=== PATIENT | female | born 2000 | race Two or more races ===

== ENCOUNTER 2022-02-15 01:00 | Observation (INO) | payer MEDICAID, SELFPAY ==
--- NOTE | ~2022-02-15 | CT_ITS ---
EXAMINATION: CT ABDOMEN AND PELVIS WITHOUT CONTRAST CLINICAL INFORMATION: Right lower quadrant pain COMPARISON: None TECHNIQUE: Multidetector volumetric imaging was performed from the superior aspect of the liver through the pubic symphysis. Sagittal and coronal reformatted images were obtained on the technologist's workstation. This CT examination was performed using dose optimization techniques as appropriate, variously including the following: *Automated exposure control *Adjustment of mA and/or kV according to patient size (this includes techniques or standardized protocols for targeted exams where dose is matched to indication/reason for exam; i.e. extremities or head) *Use of iterative reconstruction technique DLP: 518 mGy-cm FINDINGS: LUNG BASES: The visualized lung bases are unremarkable. LIVER, GALLBLADDER, AND BILIARY TREE: The liver is normal in size, shape, and attenuation. No focal hepatic lesion or biliary ductal dilatation is present. The gallbladder is unremarkable with no evidence of radiopaque gallstones, gallbladder wall thickening, or obvious pericholecystic inflammatory changes. PANCREAS: Unremarkable. SPLEEN: Unremarkable. ADRENAL GLANDS: Unremarkable. KIDNEYS AND URETERS: The kidneys are normal in size, shape, and attenuation. No hydronephrosis or hydroureter. There are at least 3 punctate right-sided calculi. No definite left-sided calculi. BLADDER: Unremarkable. GASTROINTESTINAL TRACT: The stomach is unremarkable. Normal caliber small bowel. No obstruction. Partially visualized normal appendix. No colonic wall thickening or change. No free air or free fluid. ABDOMINAL WALL: No significant hernia is appreciated. LYMPH NODES: Normal. VASCULAR: Unremarkable. PELVIC VISCERA: The uterus and adnexa are unremarkable. OSSEOUS STRUCTURES: No acute or suspicious osseous abnormality. CT/CT abdomen pelvis wo con IMPRESSION: No acute findings in the abdomen or pelvis. No inflammatory change. Partial visualization of a normal appendix. Tiny right-sided renal calculi. No hydronephrosis. Fleischner guidelines were followed.
[2022-02-15 01:37] VITALS: BP 130/83; PULSE 113; RESP 20; TEMP 36.8; O2SAT 97; BMI 22.6
[2022-02-15] MEDS: Ondansetron ODT 4 MG TAB.RAPDIS TRANSLINGU (01:47)
[2022-02-15 01:50] LABS: Basophils Absolute Auto 0.1 X10*3/uL (0.0-0.2); Basophils Percent Auto 0.2 % (0-2); Eosinophils Absolute Auto 0.1 X10*3/uL (0.0-0.4); Eosinophils Percent Auto 0.3 % (0-4); Hematocrit 34.9 % (37.0-47.0); Hemoglobin 11.4 g/dl (12.0-16.0); Imm Gran Abs Auto 0.12 X10*3/uL (0.00-0.03); Imm Gran Pct Auto 0.5 % (0.0-0.4); Lymphocytes Absolute Auto 1.1 X10*3/uL (1.2-4.9); MANUAL DIFF FLAG SCAN; Mean Corpuscular HGB Conc 32.7 g/dl (31.0-35.0); Mean Corpuscular Hemoglobin 24.4 pg (27.0-33.0); Mean Corpuscular Volume 74.6 fL (80.0-98.0); Mean Platelet Volume 10.9 fL (9.4-12.3); Monocytes Absolute Auto 1.2 X10*3/uL (0.1-1.2); Monocytes Percent Auto 5.1 % (2-11); Neutrophils Absolute Auto 20.1 x10*3/uL (2.0-8.3); Neutrophils Percent Auto 88.9 % (45-73); Platelet Count 371 X10*3/uL (160-400); Red Blood Count 4.68 X10*6/uL (4.20-5.50); Red Cell Distribution Width 14.1 % (11.0-16.0); SCAN SMEAR FLAG 1; White Blood Count 22.6 X10*3/uL (4.8-10.8)
[2022-02-15 02:11] LABS: Alanine Aminotransferase 19 U/L (0-31); Albumin Level 4.7 g/dL (3.5-5.0); Alkaline Phosphatase 53 U/L (39-117); Anion Gap 16 (12-20); Aspartate Amino Transferase 22 U/L (5-31); Bilirubin Total 0.8 mg/dL (0.0-1.0); Blood Urea Nitrogen 12 mg/dL (9-16); Calcium 9.8 mg/dL (8.4-10.2); Carbon Dioxide 23 mmol/L (22-29); Chloride 108 mmol/L (96-108); Creatinine Clr Calc Pharmacy 66.6; Estimated Glomerular Filt Rate > 60; Glucose Random 117 mg/dL (60-115); Potassium 4.3 mmol/L (3.3-5.1); Sodium 143 mmol/L (135-145); Total Protein 7.2 g/dL (6.5-8.0)
[2022-02-15 02:27] LABS: SLIDE REVIEW VERIFIED
--- NOTE | 2022-02-15 02:43 | ED.ABDPAIN ---
HPI - Abdominal Pain General Chief Complaint: Abdominal Pain Stated Complaint: abd pain Time Seen by Provider: 02/15/22 02:36 Source: patient Mode of arrival: ambulatory Limitations: no limitations History of Present Illness HPI narrative: Patient comes to the emergency room complaining of right lower quadrant pain. Patient states that she has been having severe abdominal pain for 1 year. Patient states that she is usually seen at [facility]. She was seen there a few days ago, patient signed herself out against medical advice for unclear reason. Patient uses marijuana to relieve the pain. Patient states that usually when she is about to get her menstrual period, She has significant pain. However, this time she is not menstruating. Patient states that the pain that she is feeling at this time, it has been present for 2 weeks Related Data Allergies Allergy/AdvReac Type Severity Reaction Status Date / Time cat dander [cats] Allergy Hives Verified 02/15/22 01:36 dog dander [dogs] Allergy Hives Verified 02/15/22 01:36 Seasonal Allergies Allergy Hives Verified 02/15/22 01:36 Review of Systems Review of Systems Constitutional : No Weight loss, No Fever, No Chills, No Night Sweats, No Fatigue, No Malaise ENT/Mouth : No Hearing loss, No Ear Pain, No Nasal Congestion, No Sinus Pain, No Hoarseness, No sore throat, No Rhinorrhea, No Swallowing Difficulty Eyes: No Eye Pain, No Swelling, No Redness, No Foreign Body, No Discharge, No Vision Changes Cardiovascular : No Chest Pain, No SOB, No Dyspnea on Exertion, No Orthopnea, No Edema, No Palpitations Respiratory : No Cough, No Sputum, No Wheezing, No Smoke Exposure, No Dyspnea Gastrointestinal : Complaining of nausea, no diarrhea, complaining of right lower quadrant pain for 2 weeks Genitourinary : no irregular bleeding, No Dysuria, No Urinary Frequency, No Hematuria, No Urinary Incontinence, No Urgency, No Flank Pain, No Urinary Flow Changes, No Hesitancy Musculoskeletal : No joint pain, No Myalgias, No Joint Swelling Skin : No Skin Lesions, No rash Neuro : No Weakness, No Numbness, No Paresthesias, No Loss of Consciousness, No Dizziness, No Headache Psych : No Anxiety/Panic, No Depression, No SI/HI/AH/VH, No Social Issues, Heme/Lymph: No Bruising, No Bleeding,No Lymphadenopathy Endocrine : No Polyuria, No Polydipsia, No Temperature Intolerance FOR[facility]LY [facility], [facility] Past Medical History Medical History (Updated 02/15/22 @ 04:02 by Tanya Cardozo MD) Asthma Cannabinoid hyperemesis syndrome Cyclical vomiting Social History Social History Advance Directives: No Physical Exam ED Vital Signs: Vital Signs - 24 hr 02/15/22 01:37 02/15/22 04:00 02/15/22 05:51 Temperature 98.3 F Pulse Rate 113 H 91 100 Respiratory Rate 20 16 20 Blood Pressure 130/83 122/75 112/76 Pulse Oximetry 97 98 Oxygen Delivery Method Room Air Room Air BMI result Body Mass Index 22.6 Const Other: Appearance: Alert. Oriented X3. Very anxious, crying hysterically, twisting and turning in bed, looks uncomfortable Eyes: Pupils equal, round and reactive to light. ENT: Pharynx normal. Neck: Normal inspection. Neck supple. No lymph nodes noted. No crepitus CVS: Normal heart rate and rhythm. Pulses normal. Normal S1 and S2 Respiratory: No respiratory distress. Breath sounds normal. No Wheezing. No rales Abdomen: Soft, nondistended, exaggerated response to very mild touch over the right lower quadrant. Skin: Pale, mildly diaphoretic Extremities: No lower extremity edema. No Lacerations. No Rash Neuro: Oriented X 3. No motor deficit. No sensory deficit. Moving all extremities. No slurred speech. CN 2 through 12 grossly intact Psych: calm, cooperative, normal affect Course Course Course Narrative: I reviewed records from [facility]. Patient was seen there on 02/06/2022, patient had the same presentation, crying, screaming, patient was given IV fluids and 2.5 mg of Haldol, eventually patient walked out of the ED at [facility] CT scan is negative for any acute pathology, white blood cell count is elevated likely secondary to reactive leukocytosis. Lactic acid pending. Patient will p.o. challenge. If patient does well, she will be discharged. If not, patient will be admitted for intractable vomiting Patient's lactic acid 2.7, likely secondary from vomiting. Patient receiving IV fluids. Patient is at this time calm, sleeping comfortably, not vomiting. 04:45, patient started vomiting again, patient given Phenergan, IM Haldol and IV Ativan. Plan to p.o. challenge after the medication takes effect Patient continues vomiting. Patient was given Compazine. I discussed the patient with Dr. Acevedo, patient being admitted for intractable vomiting, likely secondary to marijuana abuse MDM - Abdominal Pain Lab Data Result diagrams: 02/15/22 01:44 02/15/22 01:44 Labs: Lab Results 02/15/22 02/15/22 02/15/22 Range/Units 01:44 01:44 03:19 WBC 22.6 H (4.8-10.8) X10*3/uL RBC 4.68 (4.20-5.50) X10*6/uL Hgb 11.4 L (12.0-16.0) g/dl Hct 34.9 L (37.0-47.0) % MCV 74.6 L (80.0-98.0) fL MCH 24.4 L (27.0-33.0) pg MCHC 32.7 (31.0-35.0) g/dl RDW 14.1 (11.0-16.0) % Plt Count 371 (160-400) X10*3/uL MPV 10.9 (9.4-12.3) fL Immature Gran % (Auto) 0.5 H (0.0-0.4) % Neut % (Auto) 88.9 H (45-73) % Lymph % (Auto) 5.0 L (20-40) % [place] % (Auto) 5.1 (2-11) % Eos % (Auto) 0.3 (0-4) % Baso % (Auto) 0.2 (0-2) % Lymph # (Auto) 1.1 L (1.2-4.9) X10*3/uL [place] # (Auto) 1.2 (0.1-1.2) X10*3/uL Eos # (Auto) 0.1 (0.0-0.4) X10*3/uL Baso # (Auto) 0.1 (0.0-0.2) X10*3/uL Abs Immat Gran (auto) 0.12 H (0.00-0.03) X10*3/uL Absolute Neuts (auto) 20.1 H (2.0-8.3) x10*3/uL Absolute Nucleated RBC 0.000 (0.0-0.012) X10*3/uL Nucleated RBC % (auto) 0.0 (0.0-0.2) /100WBC Smear Tech's Comments VERIFIED Sodium 143 (135-145) mmol/L Potassium 4.3 (3.3-5.1) mmol/L Chloride 108 (96-108) mmol/L Carbon Dioxide 23 (22-29) mmol/L Anion Gap 16 (12-20) BUN 12 (9-16) mg/dL Creatinine 0.99 (0.5-1.4) mg/dL Estim Creat Clear Calc 66.6 Estimated GFR > 60 Random Glucose 117 H (60-115) mg/dL Lactic Acid 2.7 H* (0.5-2.0) mmol/L Calcium 9.8 (8.4-10.2) mg/dL Total Bilirubin 0.8 (0.0-1.0) mg/dL AST 22 (5-31) U/L ALT 19 (0-31) U/L Alkaline Phosphatase 53 (39-117) U/L Total Protein 7.2 (6.5-8.0) g/dL Albumin 4.7 (3.5-5.0) g/dL Beta HCG, Quant < 2 mIU/mL Ethyl Alcohol < 10 mg/dL Imaging Data CT scan - abdomen: Radiologist's impression: FINDINGS: LUNG BASES: The visualized lung bases are unremarkable.? LIVER, GALLBLADDER, AND BILIARY TREE: The liver is normal in size, shape, and attenuation. No focal hepatic lesion or biliary ductal dilatation is present. The gallbladder is unremarkable with no evidence of radiopaque gallstones, gallbladder wall thickening, or obvious pericholecystic inflammatory changes.? PANCREAS: Unremarkable.? SPLEEN: Unremarkable.? ADRENAL GLANDS: Unremarkable.? KIDNEYS AND URETERS: The kidneys are normal in size, shape, and attenuation. No hydronephrosis or hydroureter. There are at least 3 punctate right-sided calculi. No definite left-sided calculi. BLADDER: Unremarkable.? GASTROINTESTINAL TRACT: The stomach is unremarkable. Normal caliber small bowel. No obstruction. Partially visualized normal appendix. No colonic wall thickening or change. No free air or free fluid.? ABDOMINAL WALL: No significant hernia is appreciated.? LYMPH NODES: Normal. VASCULAR: Unremarkable. PELVIC VISCERA: The uterus and adnexa are unremarkable.? OSSEOUS STRUCTURES: No acute or suspicious osseous abnormality.? CT/CT abdomen pelvis wo con IMPRESSION: No acute findings in the abdomen or pelvis. No inflammatory change. Partial visualization of a normal appendix. ? Tiny right-sided renal calculi. No hydronephrosis.? ? Fleischner guidelines were followed. Discharge Plan Discharge Clinical Impression: Cyclical vomiting Patient Disposition: Admitted As Inpatient
[2022-02-15 03:03] LABS: HCG Quantitative < 2 mIU/mL
[2022-02-15] MEDS: Ketorolac Tromethamine 30 MG/ML VIAL IVPUSH (03:16)
[2022-02-15] MEDS: 0.9 % Sodium Chloride 1,000 ML 999 ML IVCONT ×2 (03:18→05:01)
--- NOTE | 2022-02-15 03:25 | PC.NURSE ---
Pt presented in immense pain, writing and screaming. Pt is having trouble following directions due to the pain. Pt also got nausea from the pain, denied sublingual zofran, stating it made it all worse when she tookit before. IV inserted, torodol given per MAR, fluids running.
[2022-02-15] MEDS: ondansetron HCL 4 MG/2 ML VIAL IVPUSH (03:35)
[2022-02-15 04:00] VITALS: BP 122/75; PULSE 91; RESP 16
[2022-02-15 04:04] LABS: Ethanol < 10 mg/dL
[2022-02-15 04:13] LABS: Lactic Acid 2.7 mmol/L (0.5-2.0)
[2022-02-15] MEDS: LORazepam 2 MG/ML VIAL 1 MG IVPUSH (04:54)
[2022-02-15] MEDS: Haloperidol Lactate 5 MG/ML VIAL 2.5 MG IM (04:55)
--- NOTE | 2022-02-15 05:02 | PC.NURSE ---
Pt given haldol, ativan, and promethazine for pain management.
[2022-02-15 05:23] LABS: Reflex Lactate? Lactic Acid Added
[2022-02-15 05:51] VITALS: BP 112/76; PULSE 100; RESP 20; O2SAT 98
--- NOTE | 2022-02-15 06:11 | PC.NURSE ---
pt is still vomiting, pt is unable to tolerate po challenge. plan is to admit. pt made aware.
--- NOTE | 2022-02-15 06:45 | PC.NURSE ---
Pt came in with abdominal pain and vomiting. Pt was writhing in pain uncontrollably. Pt has a history of this type of reaction after smoking marijuana, she has been seen for this several times but refuses to stop. Pt was given torodol, zofran, haldol, and ativan to attempt to control the pain and nausea. Attempted a PO trial, but pt vomited water back up. At this time, pt is asleep. The plan is for her to be admitted.
[2022-02-15 07:07] VITALS: BP 119/70; PULSE 99; RESP 16; TEMP 36.4; O2SAT 100
[2022-02-15 07:29] LABS: Appearance Urine HAZY; Color Urine YELLOW; Glucose Urine UA NEG (NEG); Leukocyte Esterase Urine NEG (NEG); Nitrite Urine NEG (NEG); PH 7.5 (5.0-8.0); Urine Blood NEG (NEG); Urine Ketones >=80 MG/DL (NEG); Urine Protein TRACE MG/DL (NEG-TRACE)
[2022-02-15 07:47] LABS: Amphetamine Screen Urine Not Detected (Not Detect); Barbiturates, Urine Not Detected (Not Detect); Benzodiazepines Screen Urine Not Detected (Not Detect); Cannabinoid Screen Urine POSITIVE (Not Detect); Cocaine Screen Urine Not Detected (Not Detect); Fentanyl, urine Not Detected (Not Detect); Opiate Screen Urine Not Detected (Not Detect); Phencyclidine Screen Urine Not Detected (Not Detect)
[2022-02-15] MEDS: Prochlorperazine Edisylate 10 MG/2 ML VIAL IVPUSH (08:36)
--- NOTE | 2022-02-15 09:17 | PHA.MEDREC ---
Pharmacy Consult ? Medication Reconciliation Pharmacy has completed the medication reconciliation. spoke with patient in the ED.
--- NOTE | 2022-02-15 09:23 | P.HPHOSP_ITS ---
History of Present Illness Date of Service: 02/15/22 Chief Complaint: nuasea and vomiting This is a 21 year old female with a PMH of cylical vomiting syndrome who [place] [facility] with a 1 day history of intractable nausea and vomiting, followed by buring epigastric pain of 1 day duration. The patient reports that she typically has nausea every morning and usually by the afternoon, her symptoms improve and she is able to tolerate a diet. However, on the day [employer] the patients symptoms worsened to the point that she was unable to tolerate even water and hence she arrived to the ED. Since arrival to the ED, she patient has been 6 rounds of anti-emetics, but despite this she has had multiple bouts of emesis. She has failed her PO trial and now will be admitted for further treatment. In regards to her history of CVS, she reports she has seen a GI in the past. She has been told of marijuana's association with the condition. She reports intermittently marijuana use, typically when she pain. She reports no association with marijuana use and subsequent flare of her CVS. Review of Systems Review of Systems: negative except HPI [facility] Medical History Asthma Cannabinoid hyperemesis syndrome Cyclical vomiting Pertinent family history: Denies any known PMH Surgical History (Updated 02/15/22 @ 09:28 by Richard Pierre MD) No pertinent past surgical history Social History (Updated 02/15/22 @ 09:28 by Richadr Pierre MD) Alcohol intake: never Patient Tobacco Use Status: Never used Tobacco Substance Use Type: Marijuana Advance Directives: No Meds Allergies Allergy/AdvReac Type Severity Reaction Status Date / Time cat dander [cats] Allergy Hives Verified 02/15/22 01:36 dog dander [dogs] Allergy Hives Verified 02/15/22 01:36 Seasonal Allergies Allergy Hives Verified 02/15/22 01:36 Active Medications: Current Medications Acetaminophen (Acetaminophen 325 Mg Tablet) 650 mg PO Q6H PRN PRN Reason: Pain, Mild (Pain Scale 1-3) Amitriptyline HCl (Amitriptyline Hcl 10 Mg Tablet) 20 mg PO BEDTIME TRACY Famotidine (Famotidine/Pf 20 Mg/2 Ml Vial) 20 mg IVPUSH BID TRACY Hydroxyzine HCl (Hydroxyzine Hcl 10 Mg Tablet) 10 mg PO Q8H PRN PRN Reason: anxiety Dextrose/Sodium Chloride (D51/2ns) 1,000 mls @ 100 mls/hr IVCONT .Q10H [facility] Morphine Sulfate (Morphine Sulfate 4 Mg/Ml Cartridge) 2 mg IVPUSH Q4H PRN; Protocol PRN Reason: Pain, Severe (Pain Scale 7-10) Ondansetron HCl (Ondansetron Hcl 4 Mg/2 Ml Vial) 4 mg IVPUSH Q8H PRN PRN Reason: Nausea and Vomiting Sodium Chloride (0.9 % Sodium Chloride Flush 3 Ml Syringe) 3 ml IVFLUSH QSHIFT [facility] Home Medications Medication Instructions Recorded Confirmed Last Taken Type albuterol sulfate 90 mcg/actuation 2 puff inhalation Q6H PRN wheezing 02/15/22 02/15/22 Unknown History aerosol inhaler (ProAir HFA) amitriptyline 10 mg tablet 2 tab PO BEDTIME 02/15/22 02/15/22 Unknown History baclofen 5 mg tablet 1 tab PO TID PRN abdominal pain 02/15/22 02/15/22 Unknown History ferrous sulfate 325 mg (65 mg 1 tab PO DAILY 02/15/22 02/15/22 Unknown History iron) tablet (FeroSul) hydroxyzine HCl 10 mg tablet 1 tab PO Q8H PRN anxiety 02/15/22 02/15/22 Unknown History omeprazole 20 mg capsule,delayed 1 cap PO BID@0630,1630 02/15/22 02/15/22 Unknown History release Physical Exam Vital Signs and Narrative: Vital Signs: Last Vital Signs Temp 97.5 F 02/15/22 07:07 Pulse 99 02/15/22 07:07 Resp 16 02/15/22 07:07 BP 119/70 02/15/22 07:07 Pulse Ox 100 02/15/22 07:07 O2 Del Method 02/15/22 07:07 BMI result Body Mass Index 22.6 Const: Other: Constitutional - Awake and Alert, appears uncomfortable Eyes - PERRLA, EOMI Cardiovascular - S1S2, RRR, No edema Respiratory - Normal lung expansion, Normal respiratory effort, No respiratory distress, CTA bilaterally Gastrointestinal - epigastric TTP; no rebound/guarding - No CVA tenderness Extremities - no calf tenderness bilaterally, no swelling Musculoskeletal - Normal inspection, normal ROM Skin - Warm/Dry Neurological - Alert & oriented x3, No focal deficit Psychological - Appropriate affect Results Labs CBC and Chem 7: 02/15/22 01:44 02/15/22 01:44 Labs: Laboratory Results - last 24 hr 02/15/22 02/15/22 02/15/22 01:44 01:44 03:19 MCV 74.6 L MCH 24.4 L MCHC 32.7 RDW 14.1 Plt Count 371 MPV 10.9 Immature Gran % (Auto) 0.5 H Neut % (Auto) 88.9 H Lymph % (Auto) 5.0 L [place] % (Auto) 5.1 Eos % (Auto) 0.3 Baso % (Auto) 0.2 Lymph # (Auto) 1.1 L [place] # (Auto) 1.2 Eos # (Auto) 0.1 Baso # (Auto) 0.1 Abs Immat Gran (auto) 0.12 H Absolute Neuts (auto) 20.1 H Absolute Nucleated RBC 0.000 Nucleated RBC % (auto) 0.0 Smear Tech's Comments VERIFIED Anion Gap 16 Estim Creat Clear Calc 66.6 Estimated GFR > 60 Random Glucose 117 H Lactic Acid 2.7 H* Lactic Acid F/U @ 2Hr Calcium 9.8 Total Bilirubin 0.8 AST 22 ALT 19 Alkaline Phosphatase 53 Total Protein 7.2 Albumin 4.7 Beta HCG, Quant < 2 Urine Color Urine Appearance Urine pH Ur Specific [place] Urine Protein Urine Glucose (UA) Urine Ketones Urine Blood Urine Nitrite Ur Leukocyte Esterase Urine Opiates Screen Urine Fentanyl Screen Ur Barbiturates Screen Ur Phencyclidine Scrn Ur Amphetamines Screen U Benzodiazepines Scrn Urine Cocaine Screen U Marijuana (THC) Screen Ethyl Alcohol < 10 02/15/22 02/15/22 02/15/22 07:18 07:22 07:23 MCV MCH MCHC RDW Plt Count MPV Immature Gran % (Auto) Neut % (Auto) Lymph % (Auto) [place] % (Auto) Eos % (Auto) Baso % (Auto) Lymph # (Auto) [place] # (Auto) Eos # (Auto) Baso # (Auto) Abs Immat Gran (auto) Absolute Neuts (auto) Absolute Nucleated RBC Nucleated RBC % (auto) Smear Tech's Comments Anion Gap Estim Creat Clear Calc Estimated GFR Random Glucose Lactic Acid Lactic Acid F/U @ 2Hr 1.0 Calcium Total Bilirubin AST ALT Alkaline Phosphatase Total Protein Albumin Beta HCG, Quant Urine Color YELLOW Urine Appearance HAZY Urine pH 7.5 Ur Specific [place] 1.020 Urine Protein TRACE Urine Glucose (UA) NEG Urine Ketones >=80 Urine Blood NEG Urine Nitrite NEG Ur Leukocyte Esterase NEG Urine Opiates Screen Not Detected Urine Fentanyl Screen Not Detected Ur Barbiturates Screen Not Detected Ur Phencyclidine Scrn Not Detected Ur Amphetamines Screen Not Detected U Benzodiazepines Scrn Not Detected Urine Cocaine Screen Not Detected U Marijuana (THC) Screen POSITIVE H Ethyl Alcohol Imaging Radiologist's Impressions: Impressions Abdomen/Pelvis CT 02/15/22 03:45 IMPRESSION: No acute findings in the abdomen or pelvis. No inflammatory change. Partial visualization of a normal appendix. Tiny right-sided renal calculi. No hydronephrosis. Fleischner guidelines were followed. Assessment and Plan (1) Cyclical vomiting: Status: Acute Plan This is a 21 yo F with a PMH of known cyclical vomiting syndrome who is presents with a 1 day history of persistent nausea/vomiting and subsequent epigastric pain. She has received multiple rounds of IV anti-emetics and failed her PO challenge, hence will be admitted for further management. 1. Intractable nausea and vomiting Likely secondary to cyclical vomiting syndrome, possibly exacerbated by on going marijuana use IVF IV antiemetics clear liquids if she can tolerate IV pepcid CT negative If no improvement in 24-48 hours, consider GI consult 2. Lactic acidosis not due to severe sepsis resolved with IVF alone 3. Leukocytosis likely recative no foci of infection, monitor for now Continue baseline meds as appropriate. Full Code DVT pptx, Low risk -- early ambulation. Quality Stroke Does the patient have a stroke diagnosis?: No VTE Prior VTE?: No VTE Risk Level:: Medical - low VTE Device Contraindication: Treatment Not Indicated VTE Drug Contraindication: Treatment Not Indicated
[2022-02-15 09:42] VITALS: BP 116/80; PULSE 86; RESP 17; O2SAT 99
[2022-02-15] MEDS: Dextrose 5 % and 0.45 % NaCl 1,000 ML 100 ML IVCONT (09:53)
[2022-02-15] MEDS: Famotidine/PF 20 MG/2 ML VIAL IVPUSH (09:54)
[2022-02-15 10:13] LABS: COVID-19 Test Negative (Negative); IDNOW Serial# 55D5AD1C
[2022-02-15] MEDS: Morphine Sulfate 4 MG/ML CARTRIDGE 2 MG IVPUSH (13:44)
[2022-02-15 14:37] VITALS: BP 124/66; PULSE 102; RESP 19; TEMP 37; O2SAT 99
--- NOTE | 2022-02-15 17:17 | PM.EVENT ---
Event Note Date of Service: 02/15/22 Event Note: Informed by RN that the patient wanted to leave against medical advice. Patient was informed of the risks of leaving AMA including worsening of her presenting symptoms and possible . She is aaox3 and competent to make this decision.
--- NOTE | 2022-02-15 17:19 | PM.DS ---
DS: Providers Provider Date of Service: 02/15/22 Date of admission: 02/15/22 09:17 Primary care physician: Unknown Physician DS: Diagnosis Discharge Diagnosis (1) Cyclical vomiting: Status: Acute (2) Lactic acidosis: Status: Acute (3) Leukocytosis: Status: Acute DS: Summary Hospital Course Hospital Course: Patient was admitted for intractable nausea and vomiting secondary to cyclical vomiting syndrome. She was traeted with IV antiemetics, IVF, IV pain meds. Hours after admission, patient decided to leave AMA. Time Spent with Patient Time attestation: Total time spent providing and/or coordinating discharge services: Discharge coordination time: Less than 30 minutes Quality: Safe Use of Opioids Does Pt have an Active Cancer Diagnosis on the Problem List?: No Quality: Stroke Does the patient have a stroke diagnosis?: No Physical Exam Vital Signs: Vital Signs: Last Vital Signs Temp 98.6 F 02/15/22 14:37 Pulse 102 H 02/15/22 14:37 Resp 19 02/15/22 14:37 BP 124/66 02/15/22 14:37 Pulse Ox 99 02/15/22 14:37 O2 Del Method 02/15/22 14:37 BMI result Body Mass Index 22.6 Const: Other: aaox3 DS: Data Data Completed and Pending Labs on day of discharge: Laboratory Results - last 24 hr 02/15/22 02/15/22 02/15/22 01:44 01:44 03:19 WBC 22.6 H RBC 4.68 Hgb 11.4 L Hct 34.9 L MCV 74.6 L MCH 24.4 L MCHC 32.7 RDW 14.1 Plt Count 371 MPV 10.9 Immature Gran % (Auto) 0.5 H Neut % (Auto) 88.9 H Lymph % (Auto) 5.0 L [place] % (Auto) 5.1 Eos % (Auto) 0.3 Baso % (Auto) 0.2 Lymph # (Auto) 1.1 L [place] # (Auto) 1.2 Eos # (Auto) 0.1 Baso # (Auto) 0.1 Abs Immat Gran (auto) 0.12 H Absolute Neuts (auto) 20.1 H Absolute Nucleated RBC 0.000 Nucleated RBC % (auto) 0.0 Smear Tech's Comments VERIFIED Sodium 143 Potassium 4.3 Chloride 108 Carbon Dioxide 23 Anion Gap 16 BUN 12 Creatinine 0.99 Estim Creat Clear Calc 66.6 Estimated GFR > 60 Random Glucose 117 H Lactic Acid 2.7 H* Lactic Acid F/U @ 2Hr Calcium 9.8 Total Bilirubin 0.8 AST 22 ALT 19 Alkaline Phosphatase 53 Total Protein 7.2 Albumin 4.7 Beta HCG, Quant < 2 Urine Color Urine Appearance Urine pH Ur Specific [place] Urine Protein Urine Glucose (UA) Urine Ketones Urine Blood Urine Nitrite Ur Leukocyte Esterase Urine Opiates Screen Urine Fentanyl Screen Ur Barbiturates Screen Ur Phencyclidine Scrn Ur Amphetamines Screen U Benzodiazepines Scrn Urine Cocaine Screen U Marijuana (THC) Screen Ethyl Alcohol < 10 COVID-19 (SHAY) COVID-19 [employer] 02/15/22 02/15/22 02/15/22 07:18 07:22 07:23 WBC RBC Hgb Hct MCV MCH MCHC RDW Plt Count MPV Immature Gran % (Auto) Neut % (Auto) Lymph % (Auto) [place] % (Auto) Eos % (Auto) Baso % (Auto) Lymph # (Auto) [place] # (Auto) Eos # (Auto) Baso # (Auto) Abs Immat Gran (auto) Absolute Neuts (auto) Absolute Nucleated RBC Nucleated RBC % (auto) Smear Tech's Comments Sodium Potassium Chloride Carbon Dioxide Anion Gap BUN Creatinine Estim Creat Clear Calc Estimated GFR Random Glucose Lactic Acid Lactic Acid F/U @ 2Hr 1.0 Calcium Total Bilirubin AST ALT Alkaline Phosphatase Total Protein Albumin Beta HCG, Quant Urine Color YELLOW Urine Appearance HAZY Urine pH 7.5 Ur Specific [place] 1.020 Urine Protein TRACE Urine Glucose (UA) NEG Urine Ketones >=80 Urine Blood NEG Urine Nitrite NEG Ur Leukocyte Esterase NEG Urine Opiates Screen Not Detected Urine Fentanyl Screen Not Detected Ur Barbiturates Screen Not Detected Ur Phencyclidine Scrn Not Detected Ur Amphetamines Screen Not Detected U Benzodiazepines Scrn Not Detected Urine Cocaine Screen Not Detected U Marijuana (THC) Screen POSITIVE H Ethyl Alcohol COVID-19 (SHAY) [employer] 02/15/22 09:41 WBC RBC Hgb Hct MCV MCH MCHC RDW Plt Count MPV Immature Gran % (Auto) Neut % (Auto) Lymph % (Auto) [place] % (Auto) Eos % (Auto) Baso % (Auto) Lymph # (Auto) [place] # (Auto) Eos # (Auto) Baso # (Auto) Abs Immat Gran (auto) Absolute Neuts (auto) Absolute Nucleated RBC Nucleated RBC % (auto) Smear Tech's Comments Sodium Potassium Chloride Carbon Dioxide Anion Gap BUN Creatinine Estim Creat Clear Calc Estimated GFR Random Glucose Lactic Acid Lactic Acid F/U @ 2Hr Calcium Total Bilirubin AST ALT Alkaline Phosphatase Total Protein Albumin Beta HCG, Quant Urine Color Urine Appearance Urine pH Ur Specific [place] Urine Protein Urine Glucose (UA) Urine Ketones Urine Blood Urine Nitrite Ur Leukocyte Esterase Urine Opiates Screen Urine Fentanyl Screen Ur Barbiturates Screen Ur Phencyclidine Scrn Ur Amphetamines Screen U Benzodiazepines Scrn Urine Cocaine Screen U Marijuana (THC) Screen Ethyl Alcohol COVID-19 (SHAY) Negative COVID-19 Clin Com See Note Discharge Plan Discharge Patient Disposition: Left Against Medical Advice Referrals: Physician,Unknown J [Primary Care Provider] - 1 Week Discharge Medications: No Action amitriptyline 10 mg tablet 2 tab PO BEDTIME ferrous sulfate [FeroSul] 325 mg (65 mg iron) tablet 1 tab PO DAILY omeprazole 20 mg capsule,delayed release(DR/EC) 1 cap PO BID@0630,1630 albuterol sulfate [ProAir HFA] 90 mcg/actuation HFA aerosol inhaler 2 puff inhalation Q6H PRN (Reason: wheezing) hydroxyzine HCl 10 mg tablet 1 tab PO Q8H PRN (Reason: anxiety) baclofen 5 mg tablet 1 tab PO TID PRN (Reason: abdominal pain) Discharge Orders: Discharge Order (Routine); Ordered 02/15/22 Ordered By: Richard Pierre Care Plan Goals: left AMA Health Concerns: left AMA Plan of Treatment: left AMA Assessment: left AMA
--- NOTE | 2022-02-17 14:21 | PM.EVENT ---
Event Note Date of Service: 02/17/22 Event Note: Received message from Heaven Martinez in the call center re: the patients positive blood cultures. Called the patient myself. She reports no fevers and denies IVDU. Nonetheless, she is growing staph in 1/2 bottles and needs further evaluation. She has been informed to come to the ED for hospital admission. She has agreed and will be coming.
== END 2022-02-15 15:00 | disposition left against medical advice (07) ==
LOC: HO.ED 06:19 → HO.EDOVER 09:26
PROVIDERS: Admitting Provider Family Medicine; Emergency Provider Emergency Medicine; Visit Provider Family Medicine
DX: R11.15 Cyclical vomiting syndrome unrelated to migraine (principal); E87.2 Acidosis; D72.829 Elevated white blood cell count, unspecified; R10.13 Epigastric pain; F12.90 Cannabis use, unspecified, uncomplicated; Z20.822 Contact with and (suspected) exposure to COVID-19; R11.0 Nausea; Z79.899 Other long term (current) drug therapy
CPT/HCPCS: 36415; 74176; 80053; 80307; 81003; 82077; 83605; 84702; 85025; 87040; 87077; 87186; 87205; 87635; 96361; 96365; 96366; 96372; 96375; 96376; 99218; 99284; 99285; J1885; J2060; J2270; J2405; J2550

== ENCOUNTER 2022-02-17 19:28 | Inpatient (IN) | payer MEDICAID, SELFPAY ==
[2022-02-17 19:35] VITALS: BP 124/70; PULSE 84; RESP 18; TEMP 37.1; O2SAT 98; BMI 24.5
[2022-02-17 20:02] LABS: MANUAL DIFF FLAG NO
[2022-02-17 20:04] LABS: Basophils Percent Auto 0.4 % (0-2); Eosinophils Absolute Auto 0.3 X10*3/uL (0.0-0.4); Eosinophils Percent Auto 2.3 % (0-4); Hematocrit 31.1 % (37.0-47.0); Hemoglobin 10.1 g/dl (12.0-16.0); Imm Gran Abs Auto 0.03 X10*3/uL (0.00-0.03); Imm Gran Pct Auto 0.3 % (0.0-0.4); Lymphocytes Absolute Auto 2.9 X10*3/uL (1.2-4.9); Lymphocytes Percent Auto 26.8 % (20-40); Mean Corpuscular HGB Conc 32.5 g/dl (31.0-35.0); Mean Corpuscular Hemoglobin 24.3 pg (27.0-33.0); Mean Corpuscular Volume 74.9 fL (80.0-98.0); Mean Platelet Volume 10.3 fL (9.4-12.3); Monocytes Absolute Auto 1.3 X10*3/uL (0.1-1.2); Monocytes Percent Auto 11.9 % (2-11); Neutrophils Absolute Auto 6.3 x10*3/uL (2.0-8.3); Neutrophils Percent Auto 58.3 % (45-73); Platelet Count 284 X10*3/uL (160-400); Red Blood Count 4.15 X10*6/uL (4.20-5.50); White Blood Count 10.8 X10*3/uL (4.8-10.8)
[2022-02-17 20:21] LABS: Alanine Aminotransferase 64 U/L (0-31); Alkaline Phosphatase 47 U/L (39-117); Anion Gap 10 (12-20); Aspartate Amino Transferase 109 U/L (5-31); Bilirubin Total 0.4 mg/dL (0.0-1.0); Blood Urea Nitrogen 11 mg/dL (9-16); Calcium 8.7 mg/dL (8.4-10.2); Carbon Dioxide 27 mmol/L (22-29); Chloride 105 mmol/L (96-108); Creatinine Clr Calc Pharmacy 74.4; Estimated Glomerular Filt Rate > 60; Glucose Random 104 mg/dL (60-115); Potassium 3.1 mmol/L (3.3-5.1); Sodium 139 mmol/L (135-145); Total Protein 6.1 g/dL (6.5-8.0)
[2022-02-17 22:00] VITALS: BP 124/70; PULSE 84; RESP 18; TEMP 37.1; O2SAT 98
--- NOTE | 2022-02-17 23:24 | ED.RECABL ---
HPI - Recheck/Abnormal Lab/Rx General Chief Complaint: Recheck/Abnormal Lab/Rx Stated Complaint: ?Bacteria in blood Time Seen by Provider: 02/17/22 21:38 Source: patient Mode of arrival: ambulatory Limitations: no limitations History of Present Illness HPI narrative: Patient presents emergency department stating that she was called from the hospital and advised to come back because she had abnormal blood work and needed to be admitted to the hospital. She states she was here a couple of days ago with abdominal pain and intractable vomiting and was admitted. She reports that she continues to have right-sided abdominal pain intermittent chills diarrhea and intermittent vomiting. Denies fevers, upper respiratory symptoms, chest pain, palpitations, shortness of breath, difficulty breathing, constipation, bloody or dark stools, dysuria, urinary frequency, abnormal vaginal discharge. Related Data Home Medications Medication Instructions Recorded Confirmed albuterol sulfate 90 mcg/actuation 2 puff inhalation Q6H PRN wheezing 02/15/22 02/18/22 aerosol inhaler (ProAir HFA) amitriptyline 10 mg tablet 2 tab PO BEDTIME 02/15/22 02/18/22 baclofen 5 mg tablet 1 tab PO TID PRN abdominal pain 02/15/22 02/18/22 ferrous sulfate 325 mg (65 mg 1 tab PO DAILY 02/15/22 02/18/22 iron) tablet (FeroSul) omeprazole 20 mg capsule,delayed 1 cap PO BID@0630,1630 02/15/22 02/18/22 release hydroxyzine HCl 10 mg tablet 1 tab PO Q8H PRN anxiety 02/18/22 02/18/22 norelgestromin 150 mcg-e.estradiol 1 patch topical QWEEK 02/18/22 02/18/22 35 mcg/24 hr weekly transderm patch (Xulane) Allergies Allergy/AdvReac Type Severity Reaction Status Date / Time cat dander [cats] Allergy Hives Verified 02/15/22 01:36 dog dander [dogs] Allergy Hives Verified 02/15/22 01:36 Seasonal Allergies Allergy Hives Verified 02/15/22 01:36 Review of Systems Review of Systems: Constitutional: No weight loss. No fever. No chills. No weakness. No fatigue. Eye: No swelling. No redness. ENT: No sore throat. No rhinorrhea. No nasal congestion. No sore throat. No difficulty swallowing. Skin: No rash. No itching. Cardiovascular: No chest pain. No chest pressure. No palpitations. No pedal edema. Respiratory: No shortness of breath. No cough. No sputum production. Gastrointestinal: No anorexia. Positive nausea. Positive vomiting. Positive diarrhea. Positive abdominal pain. Genitourinary: No burning micturition. No urinary frequency. No incontinence. Neurologic: No headache. No dizziness. No pre-syncope/ syncope.. No numbness. No tingling. No change in bowel or bladder control. Musculoskeletal: No muscle pain. No back pain. No joint pain. No stiffness. Hematologic: No bleeding. No bruising. Lymphatics: No enlarged lymph nodes. Psychiatric:No depression. No anxiety. Endocrine: . No polyuria. No polydipsia. Yes all other systems are reviewed and are negative [facility] Past Medical History Attestation statement: The following information was validated with the patient. Medical History Asthma Cannabinoid hyperemesis syndrome Cyclical vomiting Surgical History No pertinent past surgical history Social History Social History Alcohol intake: never Patient Tobacco Use Status: Never used Tobacco Use of substances other than those prescribed or required for medical reasons: No Substance Use Type: Marijuana Advance Directives: Yes Advance Directives Information Provided: Yes Advance Directives on File: No Patient : No Physical Exam Vital Signs: Vital Signs: Last Vital Signs Temp 98.7 F 02/17/22 22:00 Pulse 67 02/18/22 00:50 Resp 18 02/18/22 00:50 BP 116/96 H 02/18/22 00:50 Pulse Ox 100 02/18/22 00:50 O2 Del Method 02/18/22 00:50 BMI result Body Mass Index 24.5 Vital signs have been reviewed as normal and appeared to be correct. Blood pressure normal.? Heart rate normal.? Respiration rate normal. Temperature normal.? Oxygen saturation normal. Appearance: Alert.?Oriented to person, place and time. No acute distress.?Normal affect. Eyes: Pupils equal, round and reactive to light.? ENT: Pharynx normal.?? Neck: Normal inspection.? Neck supple.?? CVS: Heart sounds normal. Normal heart rate and rhythm.? Pulses normal.?? Respiratory: No respiratory distress.? Lung sounds clear to auscultation bilaterally?? Abdomen: Soft and non-tender. Normoactive bowel sounds. ?? Skin: Skin warm and dry.? Normal skin color.? Extremities: No lower extremity edema.? Neuro: Moves all extremities spontaneously. Sensation intact bilaterally. CN II-XII intact. No focal neuro deficits. Ambulates with normal steady gait. Course Course Course Narrative: Patient is a 21-year-old female with past medical history of cyclical vomiting, presenting to the emergency department regarding abnormal labs. Patient had blood cultures obtained 02/15/202208/14 were positive for Staph coccus aureus susceptible to tetracyclines. She continues to report right-sided abdominal discomfort with vomiting and non-bloody diarrhea. She is hemodynamically stable, does not meet SIRS criteria, would defer sepsis fluid bolus at this time. Reevaluation(s) Reevaluation #1: CBC reveals a microcytic anemia, 10.1 and 31.1. Hypokalemia 3.1, will replace orally with 40 mEq p.o. Elevated AST and ALT 109 and 64 respectively not previously noted, Lipase normal, diffuse mild tenderness on palpation throughout abdomen. Time: 23:31 Reevaluation #2: Spoke with Hospitalist dr. Acevedo, Who accepted patient for admission to medicine service for bacteremia. Patient agreeable to plan of care. Time: 00:07 MDM - Recheck/Abnormal Lab/Rx Lab Data Result diagrams: 02/17/22 19:57 02/17/22 19:57 Labs: Lab Results 02/17/22 02/17/22 02/17/22 Range/Units 19:57 19:57 23:50 WBC 10.8 (4.8-10.8) X10*3/uL RBC 4.15 L (4.20-5.50) X10*6/uL Hgb 10.1 L (12.0-16.0) g/dl Hct 31.1 L (37.0-47.0) % MCV 74.9 L (80.0-98.0) fL MCH 24.3 L (27.0-33.0) pg MCHC 32.5 (31.0-35.0) g/dl RDW 14.0 (11.0-16.0) % Plt Count 284 (160-400) X10*3/uL MPV 10.3 (9.4-12.3) fL Immature Gran % (Auto) 0.3 (0.0-0.4) % Neut % (Auto) 58.3 (45-73) % Lymph % (Auto) 26.8 (20-40) % [place] % (Auto) 11.9 H (2-11) % Eos % (Auto) 2.3 (0-4) % Baso % (Auto) 0.4 (0-2) % Lymph # (Auto) 2.9 (1.2-4.9) X10*3/uL [place] # (Auto) 1.3 H (0.1-1.2) X10*3/uL Eos # (Auto) 0.3 (0.0-0.4) X10*3/uL Baso # (Auto) 0.0 (0.0-0.2) X10*3/uL Abs Immat Gran (auto) 0.03 (0.00-0.03) X10*3/uL Absolute Neuts (auto) 6.3 (2.0-8.3) x10*3/uL Absolute Nucleated RBC 0.000 (0.0-0.012) X10*3/uL Nucleated RBC % (auto) 0.0 (0.0-0.2) /100WBC Sodium 139 (135-145) mmol/L Potassium 3.1 L D (3.3-5.1) mmol/L Chloride 105 (96-108) mmol/L Carbon Dioxide 27 (22-29) mmol/L Anion Gap 10 L (12-20) BUN 11 (9-16) mg/dL Creatinine 0.97 (0.5-1.4) mg/dL Estim Creat Clear Calc 74.4 Estimated GFR > 60 Random Glucose 104 (60-115) mg/dL Lactic Acid 0.8 (0.5-2.0) mmol/L Calcium 8.7 D (8.4-10.2) mg/dL Magnesium 1.9 (1.6-2.6) mg/dL Total Bilirubin 0.4 (0.0-1.0) mg/dL AST 109 H (5-31) U/L ALT 64 H (0-31) U/L Alkaline Phosphatase 47 (39-117) U/L Total Protein 6.1 L (6.5-8.0) g/dL Albumin 4.0 (3.5-5.0) g/dL Lipase 13 (8-78) U/L COVID-19 (SHAY) (Negative) COVID-19 Clin Com 02/18/22 Range/Units 00:14 WBC (4.8-10.8) X10*3/uL RBC (4.20-5.50) X10*6/uL Hgb (12.0-16.0) g/dl Hct (37.0-47.0) % MCV (80.0-98.0) fL MCH (27.0-33.0) pg MCHC (31.0-35.0) g/dl RDW (11.0-16.0) % Plt Count (160-400) X10*3/uL MPV (9.4-12.3) fL Immature Gran % (Auto) (0.0-0.4) % Neut % (Auto) (45-73) % Lymph % (Auto) (20-40) % [place] % (Auto) (2-11) % Eos % (Auto) (0-4) % Baso % (Auto) (0-2) % Lymph # (Auto) (1.2-4.9) X10*3/uL [place] # (Auto) (0.1-1.2) X10*3/uL Eos # (Auto) (0.0-0.4) X10*3/uL Baso # (Auto) (0.0-0.2) X10*3/uL Abs Immat Gran (auto) (0.00-0.03) X10*3/uL Absolute Neuts (auto) (2.0-8.3) x10*3/uL Absolute Nucleated RBC (0.0-0.012) X10*3/uL Nucleated RBC % (auto) (0.0-0.2) /100WBC Sodium (135-145) mmol/L Potassium (3.3-5.1) mmol/L Chloride (96-108) mmol/L Carbon Dioxide (22-29) mmol/L Anion Gap (12-20) BUN (9-16) mg/dL Creatinine (0.5-1.4) mg/dL Estim Creat Clear Calc Estimated GFR Random Glucose (60-115) mg/dL Lactic Acid (0.5-2.0) mmol/L Calcium (8.4-10.2) mg/dL Magnesium (1.6-2.6) mg/dL Total Bilirubin (0.0-1.0) mg/dL AST (5-31) U/L ALT (0-31) U/L Alkaline Phosphatase (39-117) U/L Total Protein (6.5-8.0) g/dL Albumin (3.5-5.0) g/dL Lipase (8-78) U/L COVID-19 (SHAY) Negative (Negative) COVID-19 Clin Com See Note Discharge Plan Discharge Clinical Impression: Bacteremia Patient Disposition: Admitted As Inpatient
[2022-02-17 23:48] LABS: Lipase 13 U/L (8-78); Magnesium 1.9 mg/dL (1.6-2.6)
[2022-02-18 00:07] LABS: Lactic Acid 0.8 mmol/L (0.5-2.0)
[2022-02-18] MEDS: Potassium Chloride Packet 20 MEQ PACKET 40 MEQ PO (00:24)
[2022-02-18] MEDS: Doxycycline Hyclate 100 MG in 0.9 % Sodium Chloride 250 ML 166.67 MG IV ×2 (00:25→10:50)
[2022-02-18] MEDS: ondansetron HCL 4 MG/2 ML VIAL IVPUSH (00:27)
[2022-02-18] MEDS: 0.9 % Sodium Chloride 1,000 ML 999 ML IV (00:29)
[2022-02-18 00:40] LABS: COVID-19 Test Negative (Negative)
[2022-02-18 00:50] VITALS: BP 116/96; PULSE 67; RESP 18; O2SAT 100
--- NOTE | 2022-02-18 00:52 | PC.NURSE ---
pt complained of feeling very cold and was shivering, slowed down NS and doxycycline with effect
--- NOTE | 2022-02-18 01:10 | PC.NURSE ---
pt complained of continued pain in IV site, no infiltration, doxycycline and NS discontinued, MD aware and waiting for decision
--- NOTE | 2022-02-18 02:17 | PM.IMHP ---
History of Present Illness Date of Service: 02/18/22 Chief Complaint: Positive blood culture 21-year-old female with a past medical history of cannabinoid use, recent admission to the hospital for cyclic vomiting syndrome; discharged on 02/15/2022, call back in given blood cultures came back positive for Staph aureus. Patient denies any lightheadedness dizziness. Denies any fever chills cough. Denies any chest pain palpitations. Denies any urinary symptoms. Patient reports he has chronic abdominal pain, also complains of poor oral intake secondary to nausea vomiting. Review of all other systems is negative except mentioned above ER course: Per ER team patient vitals are stable, patient cultures noted to be positive for Staph aureus sensitive to doxycycline-patient was given IV doxy and admitted to the hospital for further management. [facility] Medical History Asthma Cannabinoid hyperemesis syndrome Cyclical vomiting Surgical History No pertinent past surgical history Social History Alcohol intake: never Patient Tobacco Use Status: Never used Tobacco Use of substances other than those prescribed or required for medical reasons: No Substance Use Type: Marijuana Advance Directives: Yes Advance Directives Information Provided: Yes Advance Directives on File: No Patient : No Meds Allergies Allergy/AdvReac Type Severity Reaction Status Date / Time cat dander [cats] Allergy Hives Verified 02/15/22 01:36 dog dander [dogs] Allergy Hives Verified 02/15/22 01:36 Seasonal Allergies Allergy Hives Verified 02/15/22 01:36 Active Medications: Current Medications Acetaminophen (Acetaminophen 325 Mg Tablet) 650 mg PO Q6H PRN PRN Reason: Pain, Mild (Pain Scale 1-3) Amitriptyline HCl (Amitriptyline Hcl 10 Mg Tablet) 20 mg PO BEDTIME TRACY Baclofen (Baclofen 10 Mg Tablet) 5 mg PO TID PRN PRN Reason: abdominal pain Enoxaparin Sodium (Enoxaparin Sodium 40 Mg/0.4 Ml Syringe) 40 mg SUBCUT Q24H TRACY Sodium Chloride (Ns) 1,000 mls @ 100 mls/hr IVCONT .Q10H TRACY Doxycycline Hyclate 100 mg/ (Sodium Chloride) 250 mls @ 166.67 mls/hr IV Q12H [facility] Melatonin (Melatonin 3 Mg Tablet) 6 mg PO BEDTIME PRN PRN Reason: Insomnia Omeprazole (Omeprazole 20 Mg Capsule.Dr) 20 mg PO BID@0630,1630 [facility] Ondansetron HCl (Ondansetron Hcl 4 Mg/2 Ml Vial) 4 mg IVPUSH Q8H PRN PRN Reason: Nausea and Vomiting Pharmacy Consult (Consult Rx Perform Med Rec) 1 each MISCELLANE ONCE PRN PRN Reason: Consult order Senna (Sennosides 8.6 Mg Tablet) 17.2 mg PO BEDTIME PRN PRN Reason: Constipation Sodium Chloride (0.9 % Sodium Chloride Flush 3 Ml Syringe) 3 ml IVFLUSH QSHIFT [facility] Home Medications Medication Instructions Recorded Confirmed Last Taken Type albuterol sulfate 90 mcg/actuation 2 puff inhalation Q6H PRN wheezing 02/15/22 02/18/22 Unknown History aerosol inhaler (ProAir HFA) amitriptyline 10 mg tablet 2 tab PO BEDTIME 02/15/22 02/18/22 Unknown History baclofen 5 mg tablet 1 tab PO TID PRN abdominal pain 02/15/22 02/18/22 Unknown History ferrous sulfate 325 mg (65 mg 1 tab PO DAILY 02/15/22 02/18/22 Unknown History iron) tablet (FeroSul) omeprazole 20 mg capsule,delayed 1 cap PO BID@0630,1630 02/15/22 02/18/22 Unknown History release hydroxyzine HCl 10 mg tablet 1 tab PO Q8H PRN anxiety 02/18/22 02/18/22 Unknown History norelgestromin 150 mcg-e.estradiol 1 patch topical QWEEK 02/18/22 02/18/22 Unknown History 35 mcg/24 hr weekly transderm patch (Xulane) Physical Exam Vital Signs and Narrative: Vital Signs: Last Vital Signs Temp 98.7 F 02/17/22 22:00 Pulse 67 02/18/22 00:50 Resp 18 02/18/22 00:50 BP 116/96 H 02/18/22 00:50 Pulse Ox 100 02/18/22 00:50 O2 Del Method 02/18/22 00:50 BMI result Body Mass Index 24.5 Gen: Appears be in no acute distress HEENT: NCAT, Moist mucosa. Pulmonary: Vesicular breath sounds, fair air entry CVS: Normal S1-S2 Abdomen: BS+, Soft, Nontender Extremities: Warm well perfused Neuro: Alert and awake. Results Labs CBC and Chem 7: 02/17/22 19:57 02/17/22 19:57 Labs: Laboratory Results - last 24 hr 02/17/22 02/17/22 02/17/22 19:57 19:57 23:50 MCV 74.9 L MCH 24.3 L MCHC 32.5 RDW 14.0 Plt Count 284 MPV 10.3 Immature Gran % (Auto) 0.3 Neut % (Auto) 58.3 Lymph % (Auto) 26.8 [place] % (Auto) 11.9 H Eos % (Auto) 2.3 Baso % (Auto) 0.4 Lymph # (Auto) 2.9 [place] # (Auto) 1.3 H Eos # (Auto) 0.3 Baso # (Auto) 0.0 Abs Immat Gran (auto) 0.03 Absolute Neuts (auto) 6.3 Absolute Nucleated RBC 0.000 Nucleated RBC % (auto) 0.0 Anion Gap 10 L Estim Creat Clear Calc 74.4 Estimated GFR > 60 Random Glucose 104 Lactic Acid 0.8 Calcium 8.7 D Magnesium 1.9 Total Bilirubin 0.4 AST 109 H ALT 64 H Alkaline Phosphatase 47 Total Protein 6.1 L Albumin 4.0 Lipase 13 COVID-19 (SHAY) COVID-19 Clin Com 02/18/22 00:14 MCV MCH MCHC RDW Plt Count MPV Immature Gran % (Auto) Neut % (Auto) Lymph % (Auto) [place] % (Auto) Eos % (Auto) Baso % (Auto) Lymph # (Auto) [place] # (Auto) Eos # (Auto) Baso # (Auto) Abs Immat Gran (auto) Absolute Neuts (auto) Absolute Nucleated RBC Nucleated RBC % (auto) Anion Gap Estim Creat Clear Calc Estimated GFR Random Glucose Lactic Acid Calcium Magnesium Total Bilirubin AST ALT Alkaline Phosphatase Total Protein Albumin Lipase COVID-19 (SHAY) Negative COVID-19 Clin Com See Note Assessment and Plan (1) Bacteremia: Status: Acute Plan 21-year-old female with a past medical history of cannabinoid use, recent admission to the hospital for cyclic vomiting syndrome; discharged on 02/15/2022, call back in given blood cultures came back positive for Staph aureus. Admitted for further management Staph aureus bacteremia: Continue doxy for now pending further input from ID. Echocardiogram Repeat cultures were sent Nausea/vomiting/abdominal discomfort: Patient reports chronic. Recently discharged after being treated for cyclic vomiting syndrome. Supportive care. DVT prophylaxis: Lovenox Code status: Full code Quality Stroke Does the patient have a stroke diagnosis?: No VTE Prior VTE?: No VTE Risk Level:: Medical - moderate - high VTE Device Contraindication: Treatment Not Indicated VTE Drug Contraindication: N/A - Med Ordered
[2022-02-18 02:31] VITALS: BP 96/51; PULSE 63; RESP 14; O2SAT 96
[2022-02-18] MEDS: 0.9 % Sodium Chloride 1,000 ML 100 ML IVCONT ×2 (04:30→13:47)
[2022-02-18] MEDS: Omeprazole 20 MG CAPSULE.DR PO (06:08)
[2022-02-18 06:18] VITALS: BP 102/56; PULSE 51; RESP 18; TEMP 36.4; O2SAT 98
--- NOTE | 2022-02-18 06:38 | PC.NURSE ---
pt complains of abdominal pain, hospitalist made aware and contacted, waiting on further instructions from hospitalist
[2022-02-18 06:54] VITALS: RESP 16
[2022-02-18] MEDS: HYDROmorphone HCl 0.5 MG/0.5 ML SYRINGE 0.25 MG IVPUSH ×2 (06:54→13:40)
[2022-02-18 07:30] VITALS: BP 99/52; PULSE 64; RESP 12; TEMP 36.6; O2SAT 98
[2022-02-18 09:11] LABS: MANUAL DIFF FLAG NO
[2022-02-18 09:21] LABS: Basophils Percent Auto 0.4 % (0-2); Eosinophils Absolute Auto 0.4 X10*3/uL (0.0-0.4); Eosinophils Percent Auto 5.3 % (0-4); Hemoglobin 9.4 g/dl (12.0-16.0); Imm Gran Abs Auto 0.02 X10*3/uL (0.00-0.03); Imm Gran Pct Auto 0.3 % (0.0-0.4); Lymphocytes Absolute Auto 2.4 X10*3/uL (1.2-4.9); Lymphocytes Percent Auto 35.4 % (20-40); Mean Corpuscular HGB Conc 32.4 g/dl (31.0-35.0); Mean Corpuscular Hemoglobin 24.5 pg (27.0-33.0); Mean Corpuscular Volume 75.5 fL (80.0-98.0); Mean Platelet Volume 9.7 fL (9.4-12.3); Monocytes Absolute Auto 0.8 X10*3/uL (0.1-1.2); Monocytes Percent Auto 11.5 % (2-11); Neutrophils Absolute Auto 3.2 x10*3/uL (2.0-8.3); Neutrophils Percent Auto 47.1 % (45-73); Platelet Count 247 X10*3/uL (160-400); Red Blood Count 3.84 X10*6/uL (4.20-5.50); Red Cell Distribution Width 14.2 % (11.0-16.0); White Blood Count 6.8 X10*3/uL (4.8-10.8)
[2022-02-18 09:28] LABS: Anion Gap 10 (12-20); Blood Urea Nitrogen 8 mg/dL (9-16); Calcium 8.1 mg/dL (8.4-10.2); Carbon Dioxide 25 mmol/L (22-29); Chloride 109 mmol/L (96-108); Creatinine Clr Calc Pharmacy 98.9; Estimated Glomerular Filt Rate > 60; Glucose Random 89 mg/dL (60-115); Potassium 3.6 mmol/L (3.3-5.1); Sodium 140 mmol/L (135-145)
--- NOTE | 2022-02-18 09:51 | MHC.CM.PN ---
Met with patient in regards to discharge planning. Patient lives with her sister, ambulates independently and had no services prior to coming to the hospital. No services anticipated to be needed because patient is not homebound. PCP is at [facility] in [place]. Patient believes she has a HCP on file at PCP's office. Patient received 2 Pfizer vaccines. Patient's family or sig other will transport her home when medically stable. Continue to monitor for d/c needs.
[2022-02-18] MEDS: 0.9 % Sodium Chloride Flush 3 ML SYRINGE IVFLUSH (10:49)
[2022-02-18] MEDS: Enoxaparin Sodium 40 MG/0.4 ML SYRINGE SUBCUT (10:51)
--- NOTE | 2022-02-18 14:24 | PC.NURSE ---
Patient is alert and oriented. Reports epigastric pain and pain at the right ac iv site. Right ac iv removed. Patient is ambulating to the bathroom. Needs met.
--- NOTE | 2022-02-18 16:46 | P.DS_ITS ---
DS: Providers Provider Date of Service: 02/18/22 Date of admission: 02/18/22 01:19 Primary care physician: Unknown Physician Consults: 02/18/22 01:19 Consult to Infectious Diseases Routine Consulting Provider: Irene Hayden Reason for consultation: bacteremia DS: Diagnosis Discharge Diagnosis (1) Bacteremia: Status: Acute DS: Summary Hospital Course Hospital Course: Patient was admittted recently with cyclical vomitting and was admitted but left AMA, blood cultures were drawn routinely, she had no fever or no increase WBC at that time. She was called by to the ED because of 1/2 Staph Aureus. She has no fever, she doesn't feel ill, she has no risk factors such as IV drug use.. She has been startedon Vancomycin.. Given the circumstance and 1/2 this is likely a contamination, this has been discussed with the patient, she wishes to go home and if additional cultures drawn earlier change she may need to be recalled back to the ED...This plan was run by ID. Time Spent with Patient Time attestation: Total time spent providing and/or coordinating discharge services: Discharge coordination time: Greater than 30 minutes Quality: Safe Use of Opioids Does Pt have an Active Cancer Diagnosis on the Problem List?: No Quality: Stroke Does the patient have a stroke diagnosis?: No Physical Exam Vital Signs: Vital Signs: Last Vital Signs Temp 97.8 F 02/18/22 07:30 Pulse 64 02/18/22 07:30 Resp 12 02/18/22 07:30 BP 99/52 L 02/18/22 07:30 Pulse Ox 98 02/18/22 07:30 O2 Del Method 02/18/22 07:30 BMI result Body Mass Index 24.5 DS: Data Data Completed and Pending Labs on day of discharge: Laboratory Results - last 24 hr 02/17/22 02/17/22 02/17/22 19:57 19:57 23:50 WBC 10.8 RBC 4.15 L Hgb 10.1 L Hct 31.1 L MCV 74.9 L MCH 24.3 L MCHC 32.5 RDW 14.0 Plt Count 284 MPV 10.3 Immature Gran % (Auto) 0.3 Neut % (Auto) 58.3 Lymph % (Auto) 26.8 [place] % (Auto) 11.9 H Eos % (Auto) 2.3 Baso % (Auto) 0.4 Lymph # (Auto) 2.9 [place] # (Auto) 1.3 H Eos # (Auto) 0.3 Baso # (Auto) 0.0 Abs Immat Gran (auto) 0.03 Absolute Neuts (auto) 6.3 Absolute Nucleated RBC 0.000 Nucleated RBC % (auto) 0.0 Sodium 139 Potassium 3.1 L D Chloride 105 Carbon Dioxide 27 Anion Gap 10 L BUN 11 Creatinine 0.97 Estim Creat Clear Calc 74.4 Estimated GFR > 60 Random Glucose 104 Lactic Acid 0.8 Calcium 8.7 D Magnesium 1.9 Total Bilirubin 0.4 AST 109 H ALT 64 H Alkaline Phosphatase 47 Total Protein 6.1 L Albumin 4.0 Lipase 13 COVID-19 (SHAY) COVID-Section 101 02/18/22 02/18/22 02/18/22 00:14 09:06 09:06 WBC 6.8 RBC 3.84 L Hgb 9.4 L Hct 29.0 L MCV 75.5 L MCH 24.5 L MCHC 32.4 RDW 14.2 Plt Count 247 MPV 9.7 Immature Gran % (Auto) 0.3 Neut % (Auto) 47.1 Lymph % (Auto) 35.4 [place] % (Auto) 11.5 H Eos % (Auto) 5.3 H Baso % (Auto) 0.4 Lymph # (Auto) 2.4 [place] # (Auto) 0.8 Eos # (Auto) 0.4 Baso # (Auto) 0.0 Abs Immat Gran (auto) 0.02 Absolute Neuts (auto) 3.2 Absolute Nucleated RBC 0.000 Nucleated RBC % (auto) 0.0 Sodium 140 Potassium 3.6 Chloride 109 H Carbon Dioxide 25 Anion Gap 10 L BUN 8 L Creatinine 0.73 Estim Creat Clear Calc 98.9 Estimated GFR > 60 Random Glucose 89 Lactic Acid Calcium 8.1 L D Magnesium Total Bilirubin AST ALT Alkaline Phosphatase Total Protein Albumin Lipase COVID-19 (SHAY) Negative COVID-19 [employer] Com See Note Discharge Plan Discharge Anticipated Discharge Date/Time: 02/18/22 16:07 Patient Disposition: Home, Self-Care Discharge Diagnosis: Staph aureus in the blood Referrals: Physician,Unknown J [Primary Care Provider] - 1 Week Discharge Medications: Continued hydroxyzine HCl 10 mg tablet 1 tab PO Q8H PRN (Reason: anxiety) Xulane 150-35 mcg/24 hr patch weekly 1 patch topical QWEEK ondansetron 4 mg tablet,disintegrating 1 tab PO Q8H PRN (Reason: nausea) amitriptyline 10 mg tablet 2 tab PO BEDTIME ferrous sulfate [FeroSul] 325 mg (65 mg iron) tablet 1 tab PO DAILY omeprazole 20 mg capsule,delayed release(DR/EC) 1 cap PO BID@0630,1630 albuterol sulfate [ProAir HFA] 90 mcg/actuation HFA aerosol inhaler 2 puff inhalation Q6H PRN (Reason: wheezing) baclofen 5 mg tablet 1 tab PO TID PRN (Reason: abdominal pain) Discharge Orders: Discharge Order (Routine); Ordered 02/18/22 Ordered By: Joseph Mccormack Diet: Advance to usual diet Activity on Discharge: As tolerated Stand Alone Forms: Patient Portal Discharge page Care Plan Goals: To confirm if positive blood culture is real or not Health Concerns: positive blood culture Plan of Treatment: For now there is no specif treatment but if cultures changes we will call you, come to ED if you have fever or chills Assessment: as above
== END 2022-02-18 17:04 | disposition home or self-care (01) | DRG 724 ==
LOC: HO.ED 02-18 00:08 → HO.EDOVER 02-18 01:28
PROVIDERS: Nurse Practitioner Family; Admitting Provider Hospitalist; Emergency Provider Internal Medicine; Visit Provider Internal Medicine
DX: R78.81 Bacteremia (principal); B95.61 Methicillin susceptible Staphylococcus aureus infection as the cause of diseases classified elsewhere; Z20.822 Contact with and (suspected) exposure to COVID-19; Z79.899 Other long term (current) drug therapy
CPT/HCPCS: 36415; 80048; 80053; 83605; 83690; 83735; 85025; 87040; 87635; 96361; 96365; 96375; 99284; 99285; J1170; J1650; J2405

== ENCOUNTER 2025-08-05 11:40 | Emergency (ER) | payer OTHER, SELFPAY ==
--- NOTE | ~2025-08-05 | XR_ITS ---
EXAMINATION: XR CHEST 2 VIEWS HISTORY: cough COMPARISON: There are no prior studies available for comparison. FINDINGS: PA and lateral views of the chest are submitted. The lungs are expanded and clear. There is no pleural effusion, pneumothorax, or pulmonary vascular congestion. The heart is normal in size. The bones are intact. XR/XR chest 2V IMPRESSION: Normal examination of the chest. Electronically signed by: Guillermo Diane MD 08/05/2025 01:07 PM [facility]
[2025-08-05 12:10] VITALS: BP 144/74; PULSE 110; RESP 22; TEMP 37.3; O2SAT 95; BMI 19.3
--- OUTSIDE RECORDS SUMMARY | 2025-08-05 12:33 | XMS_ITS | Encounter Summary ---
Author Organization [facility] Address [address] [place] [address] Care Team Providers Care Edge Banding Off Bearer Name Role Phone Diana Corrales MD Primary Care Provider [phone] Encounter Details Date Type Department Care Team ([facility] Contact Info) Description 07/21/2025 Results Follow-Up Internal Medicine - [address] [phone] Abhishek Murillo, ENE [address] [place] [id number] Social History Tobacco Use Types Packs/Day Years Used Date Smoking Tobacco: Never Smokeless Tobacco: Never Alcohol Use Standard Drinks/Week Comments No 0 (1 standard drink = 0.6 oz pur e alcohol) Housing Instability Answer Date Recorde d Are you worried that in the next 2 months you may not have stable housing? Yes 07/17/2025 Food Access & Nutrition Answer Date Rec orded Do you have access to a vari ety of food including fruits and vegetables? Yes 07/17/2025 Access to Healthcare Answer Date Record ed Within the last 3 months, ho w many times did you visit the emergency department for your medical care? 0 07/17/2025 Health Literacy Answer Date Recorded How often do you need to hav e someone help you when you read instructions, pamphlets, or other written material from your doctor or pharmacy? Never 07/17/2025 Caregiver: How often do you need to have someone help you when you read instructions, pamphlets, or other written material from your doctor or pharmacy? Not on file 07/17/2025 Financial Risk Answer Date Recorded How hard is it for you to pa y for the very basics like food, housing, medical care, and air conditioning / heating? Hard 07/17/2025 Transportation Answer Date Recorded Has the lack of transportati on kept you from meetings, work, or from getting things needed for daily living? No 5 Has the lack of transportati on kept you from medical appointments or from getting medications? No 07/17/2025 Social Isolation Answer Date Recorded How often do you feel lonely or isolated from th ose around you? Often 07/17/2025 Food Risk Answer Date Recorded Within the past 12 months we worried whether our food would run out before we got money to buy more. Sometimes true 025 Within the past 12 months th e food we bought just didn't last and we didn't have money to get more. Sometimes true 07/17/2025 Dependent Care Answer Date Recorded Do you need help finding or paying for care for your loved ones. For example, early childhood lead teacher or elderly care for an older adult? No 07/17/2025 Education Answer Date Recorded Do you think completing more education or training, like finishing a GED, going to college, or learning a trade, would be helpful for you? Yes 07/17/2025 Employment and Income Answer Date Recor ded During the last four weeks, have you been actively looking for work? No 07/17/2025 Living Situation Answer Date Recorded What is your living situation? Unrecognized valu e 07/17/2025 Comments No Sex and Gender Information Value Date Recorded Sex Assigned at Not on file Legal Sex Female 4:56 PM EST Gender Identity Not on file Sexual Orientation Not on file documented as of this encounter Plan of Treatment Upcoming Encounters Date Type Department Care Team (Late st Contact Info) Description 11/18/2025 9:00 AM EDT Consult [facility] [address] [facility] 150 [place] [phone] Dez Law MD 175 [place] [address] 04/05/2026 3:20 PM EDT Consult Gastroenterology - [address] [place] [phone] Josey Duke PA [address] [facility] [address] [place] [address] documented as of this encounter Visit Diagnoses Not on filedocumented in this encounter Additional Health Concerns Assessment Noted Time PHQ-9 Depression Total Score: 21 025 3:50 PM EST documented as of this encounter Care Teams Edge Banding Off Bearer Relationship Specialty Start Date End Date Diana Corrales MD [address] [place] [address] PCP - General Internal Medicine 06/10/25 documented as of this encounter
--- OUTSIDE RECORDS SUMMARY | 2025-08-05 12:34 | XMS_ITS | Clinical Summary ---
Author Organization 175 [facility] Address [address] [place] [address] Phone Care Team Providers Care Capacitor Repairer Name Role Phone Diana Corrales MD Primary Care Provider [phone] Allergies Active Allergy Reactions Criticality Noted Date Comments Cat Dander Hives 01/25/2018 Other Reaction(s): HV Dog Dander Hives 05/05/2023 Other Reaction(s): HV Other 01/25/2018 Dogs, cats Other Reaction(s): Hives/Urticaria Pollen Extracts 07/03/2024 Shellfish Containing Products Hives 01/25/2018 Hives Shellfish Derived Hives 05/05/2023 Medications betamethasone dipropionate (DIPROSONE) 0.05 % ointment APPLY TOPICALLY TO AFFECTED AREA TWICE A DAY STOP WHEN CLEAR Active hydrocortisone 2.5 % ointment APPLY TOPICALLY TO AFFECTED AREA TWICE A DAY STOP WHEN CLEAR Active fluticasone-raf meterol (ADVAIR DISKUS) 250-50 mcg/dose diskus inhalerIndicati ons:Moderate persistent asthma, unspecified whether complicated Inhale 1 puff by mouth 2 (two) times a day. Rinse mouth with water after use to reduce aftertaste and incidence of candidiasis. Do not swallow. 1 each 024 Active albuterol HFA (Ventolin HFA) 90 mcg/actuation inhaler Inhale 2 puffs by mouth every 6 (six) hours if needed for wheezing. 1 each 025 Active albuterol HFA (Ventolin HFA) 90 mcg/actuation inhaler Inhale 2 puffs by mouth every 6 (six) hours if needed for wheezing. 3 each 3 024 2024 Discontinued albuterol HFA (Ventolin HFA) 90 mcg/actuation inhaler INHALE 2 PUFFS INTO LUNGS EVERY 6 HOURS NEEDED FOR COUGH, WHEEZING, SHORTNESS OF BREATH 024 2024 Discontinued mupirocin (BACTROBAN) 2 % ointment APPLY 2-3 TIMES DAILY TO INFECTED SKIN FOR 5 TO 7 DAYS 2024 Discontinued cloNIDine (CATAPRES) 0.1 mg tablet Take 1 Tablet by mouth at bedtime as needed (insomnia) for up to 90 days. Stopp immediately if dizziness or lightheadedness 024 2024 Discontinued albuterol HFA (Ventolin HFA) 90 mcg/actuation inhalerIndicati ons:Moderate persistent asthma, unspecified whether complicated Inhale 2 puffs by mouth every 6 (six) hours if needed for wheezing. 1 each 024 2024 Discontinued Active Problems Problem Noted Date Diagnosed Date Allergic rhinitis 07/03/2024 Cyclical vomiting syndrome 07/03/2024 Migraine 07/03/2024 Functional abdominal pain syndrome 10/12/2021 Cannabis hyperemesis syndrom e concurrent with and due to cannabis abuse 06/24/2021 Atopic dermatitis 01/25/2018 Asthma 01/25/2018 Encounters Date Type Department Care Team Description 07/21/2025 Results Follow-Up Internal Medicine - [address] [phone] Abhishek Murillo NP 07/20/2025 Telephone Internal Medicine - [address] [phone] Diana Corrales MD 07/20/2025 Telephone Internal Medicine - [address] [phone] Diana Corrales MD 07/17/2025 4:25 PM EST Lab Draw Station [address] Potential exposure to STD (Primary Dx); Abnormal menstruation; Adult general medical exam; Abdominal pain, unspecified abdominal location 07/17/2025 3:30 PM EST Office Visit Internal Medicine - [facility] [address] [facility] [place] [address] Abhishek Murillo NP Adult general medical exam (Primary Dx); Abdominal pain, unspecified abdominal location; Nonintractable headache, unspecified chronicity pattern, unspecified headache type; Abnormal menstruation; Potential exposure to STD from Last 3 Months Immunizations Immunization Administration Dates Next Due DTaP (Infanrix) 6wks to less than 7yo ,09/13/1999,02/10/1999,12/11,1998 HPV, Quadrivalent 02/01/2010,09/29/2009,08/02/20 09 Hepatitis B Pediatric (Enger ix B; Recombivax HB) to less than 20 yo 03/10/2016 HiB 09/13/1999, 9,1998,10/11 IPV Inactivated polio (Ipol) 6wks and older 01/11/2003,12/12/1999,02/10/1999,10/11 Influenza Quadravalent, MDCK , 0.5ml, preservative free (Flucelvax) 6mo and older 04/22/2021 Influenza Whole 09/07/2009,05/21/2008 Influenza trivalent, with pr eservative (Fluzone; Afluria) 6mo and older 10/09/2020,10/09/2020,07/27/2015,06/06,05/31/2012,06/14/2010 MMR, measles mumps and rubel la Live (Priorix; M-M-R II) 12mo and older 06/13/2004,09/13/1999 Meningococcal MCV4P 12/08/2015 Meningococcal, Unspecified 12/08/2015,09/06/2010 Pfizer SARS-CoV-2 COVID-19, mRNA, LNP-S, preservative free 07/07/2021,06/09/2021 Pneumococcal polysaccharide 23 valent (Pneumovax 23) 2yo and older 10/09/2020,10/09/2020,05/06/2019 Tdap Tetanus diptheria acell ular pertussis (Boostrix; Adacel) 7yo and older 08/02/2009 Varicella live (Varivax) 12m o and older 05/09/2007,09/13/1999 Surgical History Surgery Date Site/Laterality Comments OTHER SURGICAL HISTORY PROCEDURE: DENIES PREVIOUS SURGERY Medical History Medical History Date Comments Asthma DX:Asthma Family History Medical History Relation Name Comments Asthma Brother Asthma Father Arthritis Mother Seizures Mother Relation Name Status Comments Brother Alive Father Alive Mother Alive Social History Tobacco Use Types Packs/Day Years Used Date Smoking Tobacco: Never Smokeless Tobacco: Never Tobacco Cessation:Counseling Given: Not Answered Alcohol Use Standard Drinks/Week Comments No 0 [...] ed Within the last 3 months, ho dean many times did you visit the emergency [...] getting things needed for daily living? No Has the lack of transportati on kept [...] got money to buy more. Sometimes true 12/05/2 025 Within the past 12 months th e food we bought just didn't last and we didn't have money to get more. Sometimes true 07/17/2025 Dependent Care Answer Date Recorded Do you need help finding or paying for care for your loved ones. For example, children's minister or elderly care for an older adult? [...] on file Sexual Orientation Not on file Last Filed Vital Signs Vital Sign Reading Time Taken Comments Blood Pressure 119/74 07/17/2025 3:52 PM EST aut o Pulse 68 07/17/2025 3:52 PM EST Temperature 36.3 C (97.4 F) 07/03/2024 10:10 AM EST Respiratory Rate 20 07/03/2024 10:10 AM EST Oxygen Saturation 100% 07/03/2024 10:10 AM EST Inhaled Oxygen Concentration - - Weight 49.2 kg (108 lb 8 oz) 07/17/2025 3:52 PM EST Height 154.9 cm (5' 1 ) 07/17/2025 3:52 PM EST Body Mass Index 20.5 07/17/2025 3:52 PM EST Plan of Treatment Upcoming Encounters Date Type Department Care Team (Late st Contact Info) Description 11/18/2025 9:00 AM EDT Consult [facility] 175 [facility] [address] [place] [address] Dez Law MD 175 [place] [address] 04/05/2026 3:20 PM EDT Consult Gastroenterology - 299 [facility] 299 [facility] [address] [place] [phone] Josey Duke PA [address] [facility] [address] [place] [address] Health Maintenance Due Date Last Done Comments Hepatitis B Vaccines (2 of 3 - 3-dose series) 04/07/2016 03/10/2016 Cervical Cancer Screening: Pap Smear 2019 Influenza Vaccine (#1) 2026 , 10/09/2020, 10/09/2020, Additional history exists Postponed from 04/13/2025 (Patient Refused) COVID-19 Vaccine ( season) 2026 07/28/2021, 07/07/2021, 06/09/2021 Postponed from 04/13/2025 (Patient Refused) DTaP,Tdap,and Td Vaccines (7 - Td or Tdap) 07/17/2026 08/02/2009, 01/11/2003, 09/13/1999, Additional history exists Postponed from 08/02/2019 (Patient Refused) Pneumococcal Vaccine: Pediatrics (0 to 5 Years) and At-Risk Patients (6 to 49 Years) (2 of 2 - PCV) 07/17/2026 10/09/2020, 10/09/2020, 05/06/2019 Postponed from 10/09/2021 (Patient Refused) Social Influencers of Health Screening 07/17/2026 07/17/2025 Cholesterol Screening (Lipid Panel) 07/17/2030 07/17/2025, 05/06/2019 RSV Immunization Adult Patients (1 - 1-dose 75+ series) 2073 HIB Vaccines Completed 09/13/1999, 08/1998, 1998, Additional history exists IPV Vaccines Completed 01/11/2003, 08/1999, 02/10/1999, Additional history exists MMR Vaccines Completed 06/13/2004, 09/13/1999 Varicella Vaccines Completed 05/09/2007, 09/13/1999 HPV Vaccines Completed 02/01/2010, 09/13, 08/02/2009 Meningococcal ACWY Vaccine Completed 12/07, 12/08/2015, 09/06/2010 Depression Screening Completed 07/17/2025 Gonorrhea/Chlamydia Screening Discontinued 07/17/2025, 03/14/2022 HIV Screening Completed 07/17/2025, 03/07/2023 Hepatitis C Screening Completed 07/17/2025, 023 Hepatitis A Vaccines Aged Out No long er eligible based on patient's age to complete this topic Meningococcal B Vaccine Aged Out No l onger eligible based on patient's age to complete this topic RSV Immunization Patients Under 20 months Aged Out No longer eligible based on patient's age to complete this topic Procedures Procedure Name Priority Date/Time Associated Diagnosis Comments CBC WITH AUTO DIFFERENTIAL Routine 07/17/2025 4:27 PM EST Abnormal menstruation COMPREHENSIVE METABOLIC PANEL Routine 07/17/2025 4:27 PM EST Abdominal pain, unspecified abdominal location CBC AND DIFFERENTIAL Routine 07/17/2025 4:27 PM EST Abnormal menstruation LIPID PANEL WITH REFLEX TO DIRECT LDL Routine 07/17/2025 4:27 PM EST Adult general medical exam THYROID STIMULATING HORMONE WITH REFLEX TO FREE T4 AND FREE T3 Routine 07/17/2025 4:27 PM EST Abnormal menstruation HIV 1, 2 ANTIBODY, P24 ANTIGEN WITH REFLEX TO DIFFERENTIATION Routine 07/17/2025 4:27 PM EST Potential exposure to STD HEPATITIS PANEL, ACUTE WITH REFLEX TO CONFIRMATION Routine 07/17/2025 4:27 PM EST Potential exposure to STD HERPES SIMPLEX VIRUS 1 AND 2, IGG Routine 07/17/2025 4:27 PM EST Potential exposure to STD TREPONEMA PALLIDUM ANTIBODY WITH REFLEX TO RPR AND PARTICLE AGGLUTINATION Routine 07/17/2025 4:27 PM EST Potential exposure to STD CHLAMYDIA TRACHOMATIS AND NEISSERIA GONORRHOEAE PCR Routine 07/17/2025 4:27 PM EST Potential exposure to STD from Last 3 Months Results * HIV 1,2 antibody, p24 antigen with reflex to differentiation (07/17/2025 4:27 PM EST) HIV Combo AB/AG Negative Negative 07/17/2025 8:29 PM EST [facility] Blood Venous blood specimen / Unknown Venipuncture / Unknown 07/17/2025 4:27 PM EST 07/17/2025 4:27 PM EST Narrative [facility] - 07/17/2025 8:29 PM EST This assay is a 4th generation assay allowing for earlier detection of HIV infection by detecting the presence of the HIV-1 p24 antigen as well as the traditional antibodies to HIV type 1 (including group O) and type 2. Use of a 4th generation assay is the current CDC recommendation for HIV screening. Abhishek Murillo NP LAB BLOOD ORDERABLES Final Res ult Performing Organization Address City/[facility]/ZIP Co de Phone Number [facility] [address] [place] [address], [place] [phone] * Treponema pallidum antibody with reflex to RPR and particle agglutination (07/17/2025 4:27 PM EST) [facility] T. Pallidum Antibodies Negative Negative 07/17/2025 10:41 PM EST [facility] Blood Venous blood specimen / Unknown Venipuncture / Unknown 07/17/2025 4:27 PM EST 07/17/2025 4:27 PM EST Abhishek Murillo SWAGING MACHINE ADJUSTER LAB BLOOD ORDERABLES Final Res ult [facility] [address] [place] [address], [place] [phone] * Thyroid stimulating hormone with reflex to free t4 and free t3 (07/17/2025 4:27 PM EST) [facility] TSH 1.37 0.40 - 4.00 mcIU/mL 07/17/2025 8:37 PM [facility] Blood Venous blood specimen / Unknown Venipuncture / Unknown 07/17/2025 4:27 PM EST 07/17/2025 4:27 PM EST us Abhishek Murillo NP LAB BLOOD ORDERABLES Final Res ult Performing Organization Address City/[facility]/ZIP Co de Phone Number [facility] [address] [place] [address], [place] [phone] * Lipid panel with reflex to direct LDL (07/17/2025 4:27 PM EST) Cholesterol 177 0 - 200 mg/dL 07/17/2025 8:11 PM [facility] Triglycerides 77 0 - 150 mg/dL 07/17/2025 8:11 PM [facility] HDL 63 >=40 mg/dL 07/17/2025 8:11 PM [facility] LDL Calculated 99 0 - 100 mg/dL 07/17/2025 8:11 PM [facility] Comment:Estimated LDL Calcul ated using equation: Total cholesterol - HDL cholesterol - (Triglycerides/5) VLDL Cholesterol Ritchie 15.4 mg/dL 07/17/2025 8:11 PM [facility] Non HDL Chol. (LDL+VLDL) 114 <145 mg/dL 07/17/2025 8:11 PM [facility] Chol/HDL Ratio 2.8 0.0 - 4.4 07/17/2025 8:11 PM [facility] Blood Venous blood specimen / Unknown Venipuncture / Unknown 07/17/2025 4:27 PM EST 07/17/2025 4:27 PM EST us Abhishek Murillo NP LAB BLOOD ORDERABLES Final Res ult [facility] [address] [place] [address], * Hepatitis panel, acute with reflex to confirmation (07/17/2025 4:27 PM EST) Hepatitis B Surface Ag Negative Negative 07/17/2025 8:36 PM EST [facility] Comment:Over the counter sup plements containing high doses of biotin may interfere with this assay. If interference is suspected, patients shoud be retested after refraining from biotin supplements for 72 hours. Hepatitis A Antibody IgM Negative Negative 07/17/2025 8:36 PM EST [facility] Comment:Over the counter sup plements containing high doses of biotin may interfere with this assay. If interference is suspected, patients shoud be retested after refraining from biotin supplements for 72 hours. Hep B Core IgM Negative Negative 07/17/2025 8:36 PM EST [facility] Comment:Over the counter sup plements containing high doses of biotin may interfere with this assay. If interference is suspected, patients shoud be retested after refraining from biotin supplements for 72 hours. Hepatitis C Antibody Negative Negative 07/17/2025 8:36 PM EST [facility] Blood Venous blood specimen / Unknown Venipuncture / Unknown 07/17/2025 4:27 PM EST 07/17/2025 4:27 PM EST us Abhishek Murillo SWAGING MACHINE ADJUSTER LAB BLOOD ORDERABLES Final Res ult [facility] [address] [place] [address], [place] [phone] * (ABNORMAL) Herpes simplex virus 1 and 2, IgG (07/17/2025 4:27 PM EST) HSV 1 IgG 41.00(H) <=0.90 index artem LAB CHEMISTRY METHOD 07/18/2025 10:44 AM EST [facility] HSV-1 IgG Interpretation Positive(A) Negative LAB CHEMISTRY METHOD 07/18/2025 10:44 AM [facility] HSV 2 IgG 0.09 <=0.90 index artem LAB CHEMISTRY METHOD 07/18/2025 10:44 AM [facility] HSV-2 IgG Interpretation Negative Negative LAB CHEMISTRY METHOD 07/18/2025 10:44 AM [facility] Blood Venous blood specimen / Unknown Venipuncture / Unknown 07/17/2025 4:27 PM EST 07/17/2025 4:27 PM EST us Abhishek Murillo NP LAB BLOOD ORDERABLES Final Res ult [facility] [address] [place] [address], * (ABNORMAL) CBC auto differential (07/17/2025 4:27 PM EST) WBC 9.3 4.8 - 10.8 K/mcL LAB HEMETOLOGY METHOD 07/17/2025 6:55 PM [facility] RBC 4.60 3.80 - 4.80 M/mcL LAB HEMETOLOGY METHOD 07/17/2025 6:55 PM [facility] Hemoglobin 11.5 11.5 - 16.0 g/dL LAB HEMETOLOGY METHOD 07/17/2025 6:55 PM [facility] Hematocrit 35.1 35.0 - 47.0 % LAB HEMETOLOGY METHOD 07/17/2025 6:55 PM [facility] MCV 77.0(L) 79.0 - 98.0 FL LAB HEMETOLOGY METHOD 07/17/2025 6:55 PM [facility] MCH 25.2(L) 27.0 - 32.0 pcg LAB HEMETOLOGY METHOD 07/17/2025 6:55 PM [facility] MCHC 32.8 32.0 - 37.0 g/dL LAB HEMETOLOGY METHOD 07/17/2025 6:55 PM [facility] RDW 14.7 11.0 - 15.0 % LAB HEMETOLOGY METHOD 07/17/2025 6:55 PM [facility] Platelets 354 130 - 400 K/mcL LAB HEMETOLOGY METHOD 07/17/2025 6:55 PM [facility] MPV 10.5 7.0 - 11.0 FL LAB HEMETOLOGY METHOD 07/17/2025 6:55 PM [facility] NRBC 0.0 <1.0 % LAB HEMETOLOGY METHOD 07/17/2025 6:55 PM [facility] NRBC Absolute 0.00 <0.10 K/mcL LAB HEMETOLOGY METHOD 07/17/2025 6:55 PM [facility] Neutrophils Relative 52.3 % LAB HEMETOLOGY METHOD 07/17/2025 6:55 PM [facility] Lymphocytes Relative 34.1 % LAB HEMETOLOGY METHOD 07/17/2025 6:55 PM [facility] Monocytes Relative 9.1 % LAB HEMETOLOGY METHOD 07/17/2025 6:55 PM [facility] Eosinophils Relative 3.6 % LAB HEMETOLOGY METHOD 07/17/2025 6:55 PM [facility] Basophils Relative 0.5 % LAB HEMETOLOGY METHOD 07/17/2025 6:55 PM [facility] Immature Granulocytes Relative 0.4 % LAB HEMETOLOGY METHOD 07/17/2025 6:55 PM [facility] Neutrophils Absolute 4.85 1.50 - 7.00 K/mcL LAB HEMETOLOGY METHOD 07/17/2025 6:55 PM [facility] Lymphocytes Absolute 3.17 1.00 - 5.00 K/mcL LAB HEMETOLOGY METHOD 07/17/2025 6:55 PM EST [facility] Monocytes Absolute 0.85 0.20 - 1.00 K/mcL LAB HEMETOLOGY METHOD 07/17/2025 6:55 PM EST [facility] Eosinophils Absolute 0.33 0.00 - 0.50 K/mcL LAB HEMETOLOGY METHOD 07/17/2025 6:55 PM EST [facility] Basophils Absolute 0.05 0.00 - 0.20 K/mcL LAB HEMETOLOGY METHOD 07/17/2025 6:55 PM EST [facility] Immature Granulocytes Absolute 0.04(H) 0.00 - 0.03 K/mcL LAB HEMETOLOGY METHOD 07/17/2025 6:55 PM EST [facility] Blood Venous blood specimen / Unknown Venipuncture / Unknown 07/17/2025 4:27 PM EST 07/17/2025 4:27 PM EST us Abhishek Murillo NP LAB BLOOD ORDERABLES Final Res ult Performing Organization Address City/[facility] Co de Phone Number [facility] [address] [place] [address], * Chlamydia trachomatis and Neisseria gonorrhoeae molecular study (07/17/2025 4:27 PM EST) Neisseria gonorrhoeae PCR Negative Negative LAB MOLECULAR DIAGNOSTICS METHOD 07/18/2025 1:42 PM EST [facility] Chlamydia trachomatis PCR Negative Negative LAB MOLECULAR DIAGNOSTICS METHOD 07/18/2025 1:42 PM EST [facility] Urine First stream urine specimen / Unknown Non-blood Collection / Unknown 07/17/2025 4:27 PM EST 07/17/2025 4:27 PM EST us Abhishek Murillo NP LAB MICROBIOLOGY - GENERAL ORD ERABLES Final Result [facility] [address] [place] [address], [place] [phone] * Comprehensive metabolic panel (07/17/2025 4:27 PM EST) Sodium 140 133 - 145 mmol/L 07/17/2025 8:11 PM [facility] Potassium 4.2 3.5 - 5.5 mmol/L 07/17/2025 8:11 PM [facility] Chloride 106 96 - 110 mmol/L 07/17/2025 8:11 PM [facility] CO2 27 21 - 32 mmol/L 07/17/2025 8:11 PM [facility] Anion Gap 7 3 - 11 07/17/2025 8:11 PM [facility] Glucose 75 70 - 100 mg/dL 07/17/2025 8:11 PM [facility] BUN 14 5 - 25 mg/dL 07/17/2025 8:11 PM [facility] Creatinine 0.83 0.50 - 1.10 mg/dL 07/17/2025 8:11 PM [facility] eGFR 99 >=60 mL/min/1. 73m2 07/17/2025 8:11 PM [facility] Comment:Calculation based on the Chronic Kidney Disease Epidemiology Collaboration (CKD-EPI) equation refit without adjustment for race. BUN/Creatinine Ratio 16.9 07/17/2025 8:11 PM [facility] Calcium 9.0 8.5 - 10.5 mg/dL 07/17/2025 8:11 PM [facility] AST (SGOT) 16 10 - 42 unit/L 07/17/2025 8:11 PM [facility] ALT (SGPT) 14 10 - 60 unit/L 07/17/2025 8:11 PM EST [facility] Alkaline Phosphatase 43 42 - 121 unit/L 07/17/2025 8:11 PM EST [facility] Total Protein 6.8 6.0 - 8.0 g/dL 07/17/2025 8:11 PM [facility] Albumin 4.6 3.2 - 5.0 g/dL 07/17/2025 8:11 PM [facility] Total Bilirubin 0.4 0.0 - 1.4 mg/dL 07/17/2025 8:11 PM [facility] Blood Venous blood specimen / Unknown Venipuncture / Unknown 07/17/2025 4:27 PM EST 07/17/2025 4:27 PM EST us Abhishek Murillo SWAGING MACHINE ADJUSTER LAB BLOOD ORDERABLES Final Res ult [facility] [address] [place] [address], from Last 3 Months Insurance [facility] [place] [address] Care Teams Capacitor Repairer Relationship Specialty Start Date End Date Diana Corrales MD [address] [place] [address] PCP - General Internal Medicine 06/10/25
--- NOTE | 2025-08-05 12:59 | ED_ITS ---
HPI - General Adult General Chief complaint: General Medical Stated complaint: flu symptoms Time Seen by Provider: 08/05/25 12:05 Source: patient Mode of arrival: ambulatory Limitations: no limitations History of Present Illness ED Provider: MADIHA SCOTT PA-C HPI narrative: 25 year old female with pmhx significant for cannabinoid hyperemesis syndrome presents to the ED today for evaluation of headaches, myalgias, nausea, vomiting, abdominal pain, productive cough, and wheezing x6 days. Denies etoh consumptions. Denies hx of abdominal surgeries. Reports +sick contacts. Reports using her inhaler at home without improvement - last used this yesterday. Denies fever, chills, chest pain, flank pain, urinary sx, vaginal discharge or bleeding. Related Data Home Medications ?Medication ?Instructions ?Recorded ?Confirmed albuterol sulfate 90 mcg/actuation 2 puff inhalation Q 6H PRN wheezing 02/15/22 02/18/22 aerosol inhaler (ProAir HFA) amitriptyline 10 mg tablet 2 tab PO BEDTIME 02/15/22 0 02/18/22 baclofen 5 mg tablet 1 tab PO TID PRN abdominal p ain 02/15/22 02/18/22 ferrous sulfate 325 mg (65 mg 1 tab PO DAILY 02/15/22 02/18/22 iron) tablet (FeroSul) omeprazole 20 mg capsule,delayed 1 cap PO BID@0630,163 0 02/15/22 02/18/22 release hydroxyzine HCl 10 mg tablet 1 tab PO Q8H PRN anxiety 02/18/22 02/18/22 norelgestromin 150 mcg-e.estradiol 1 patch topical QWE EK 02/18/22 02/18/22 35 mcg/24 hr weekly transderm patch (Xulane) ondansetron 4 mg disintegrating 1 tab PO Q8H PRN nause a 02/18/22 02/18/22 tablet Previous Rx's ?Medication ?Instructions ?Recorded benzonatate 100 mg capsule 100 mg PO BID PRN cough #20 caps 08/05/25 ondansetron 4 mg disintegrating 4 mg PO Q8H PRN nausea and 08/05/25 tablet vomiting #10 tabs Allergies Allergy/AdvReac Type Severity Reaction Status Date / Time cat dander (cats) Allergy Hives Verified 08/05/25 12:12 dog dander (dogs) Allergy Hives Verified 08/05/25 12:12 Seasonal Allergies Allergy Hives Verified 08/05/25 12:12 shellfish derived (shellfish) Allergy Hives Verified 08/05/25 12:12 Review of Systems 2 Review of Systems: Yes all other systems are reviewed and are negative [facility] Past Medical History Attestation statement: The following information was validated with the patient. Source: old records reviewed and nursing notes reviewed Medical History Cannabinoid hyperemesis syndrome Asthma Cyclical vomiting Surgical History No pertinent past surgical history Social History Social History Alcohol intake: never Patient Tobacco Use Status: Never used Tobacco Substance Use Type: Marijuana service: No Current occupational status: unemployed Physical Exam ED Vital Signs: Vital Signs - 24 hr 08/05/25 12:10 Temperature 99.2 F Pulse Rate 110 H Respiratory Rate 22 H Blood Pressure 144/74 H Pulse Oximetry 95 Oxygen Delivery Method Room Air BMI result Body Mass Index 19.3 low-grade temp of 99.2?, tachycardic to 110, tachypneic to 22, hypertensive to 144/74 General: patient writhing around on stretcher Skin: Warm, dry, intact. No rashes or lesions. Head: Normocephalic, atraumatic. EENT: Hearing is intact b/l. Conjunctiva clear. Sclera is anicteric. PERRLA. EOM intact. Moist mucous membranes.?posterior oropharynx wnl. Neck: Supple without LAD Cardiac: Chest wall symmetric. RRR Lungs: Normal respiratory effort without accessory muscle use. no tripoding. diffuse expiratory wheezes. Abdomen: soft, non-tender, non-distended. No rebound tenderness or guarding. Positive BS x4. Ext: Upper and lower extremities atraumatic, without tenderness, deformity, swelling or erythema. Full ROM throughout Neuro: AOx3. Normal speech. Ambulating with steady gait. Course Course Course Narrative: CBC without leukocytosis or left shift. No anemia, H and H stable. Chemistry without acute electrolyte abnormality requiring intervention. No IVELISSE. Liver function around baseline. Lipase WNL. Beta quant undetectable. Patient tested positive for influenza a, negative RSV, COVID. Chest x-ray does not demonstrate any pneumonia. > patient has been treated with IV fluids and Zofran with improvement in nausea. No episodes of vomiting. Tolerating p.o. > bronchodilator treatment administered with improvement in breathing, lungs clear. No respiratory distress Informed patient of all workup results. Educated on symptomatic treatment. Tessalon and Zofran sent to pharmacy. Patient has remained stable throughout ED visit today. Discussed worrisome signs and symptoms and when to return to the ED. All questions answered at this time. Patient is agreeable with disposition and stable for discharge. Medications Administered Discontinued Medications Generic Name Dose Route Start Last Admin Trade Name Freq PRN Reason Stop Dose Admin Albuterol Sulfate 5 mg/ 0 mg 08/05/25 13:43 08/05/25 13:50 Albuterol/Ipratropium 3 ml INHALE 08/05/25 13:44 1 each ONCE ONE Administration Sodium Chloride 1,000 mls @ 999 mls/hr 08/05/25 12:45 08/05/25 14:02 Ns IV 08/05/25 13:45 Infused .Q1H1M TRACY Infusion Ondansetron HCl 4 mg 08/05/25 12:41 08/05/25 13:08 Ondansetron Hcl 4 Mg/2 Ml Vial IVPUSH 08/05/25 12:42 4 mg ONCE ONE Administration Medical Decision Making Medical Decision Making [facility] Narrative: 25 year old female with pmhx significant for cannabinoid hyperemesis syndrome presents to the ED today for evaluation of headaches, myalgias, nausea, vomiting, abdominal pain, productive cough, and wheezing x6 days. Low-grade temp of 99.2?, tachycardic to 110, tachypneic to 22, hypertensive to 144/74 on exam, Normal respiratory effort without accessory muscle use. no tripoding. diffuse expiratory wheezes. exam otherwise reassuring. Differential diagnosis includes viral syndrome, gastroenteritis, dehydration, asthma exacerbation, pneumonia, bronchitis, cannabinoid hyperemesis Plan for labs, test, viral swabs, IV fluids, Zofran, re-evaluation Differential Diagnosis Differential Diagnoses: The differential diagnosis associated with the presentation includes as above. Admission/Observation Not indicated Lab Data [facility] Lab Attestation statement: I reviewed the patient's lab results. as above. 08/05/25 13:03 12/24/25 13:03 Labs: Lab Results 08/05/25 Range/Units 13:03 WBC 8.0 (4.8-10.8) X10*3/uL RBC 5.06 D (4.20-5.50) X10*6/uL Hgb 12.3 D (12.0-16.0) g/dl Hct 37.8 D (37.0-47.0) % MCV 74.7 L (80.0-98.0) fL MCH 24.3 L (27.0-33.0) pg MCHC 32.5 (31.0-35.0) g/dl RDW 14.3 (11.0-16.0) % Plt Count 287 (160-400) X10*3/uL MPV 10.6 (9.4-12.3) fL Immature Gran % (Auto) 0.1 (0.0-0.4) % Neut % (Auto) 63.5 (45-73) % Lymph % (Auto) 21.5 (20-40) % [place] % (Auto) 13.6 H (2-11) % Eos % (Auto) 1.0 (0-4) % Baso % (Auto) 0.3 (0-2) % Lymph # (Auto) 1.7 (1.2-4.9) X10*3/uL [place] # (Auto) 1.1 (0.1-1.2) X10*3/uL Eos # (Auto) 0.1 (0.0-0.4) X10*3/uL Baso # (Auto) 0.0 (0.0-0.2) X10*3/uL Abs Immat Gran (auto) 0.01 (0.00-0.03) X10*3/uL Absolute Neuts (auto) 5.1 (2.0-8.3) x10*3/uL Absolute Nucleated RBC 0.000 (0.0-0.012) X10*3/uL Nucleated RBC % (auto) 0.0 (0.0-0.2) /100WBC Sodium 141 (135-145) mmol/L Potassium 3.6 (3.3-5.1) mmol/L Chloride 106 (96-108) mmol/L Carbon Dioxide 23 (22-29) mmol/L Anion Gap 16 (12-20) BUN 13 (9-16) mg/dL Creatinine 0.73 (0.5-1.4) mg/dL Estim Creat Clear Calc 84.6 Estimated GFR > 60 Random Glucose 96 (60-115) mg/dL Calcium 9.0 D (8.4-10.2) mg/dL Magnesium 2.3 (1.6-2.6) mg/dL Total Bilirubin 0.5 (0.0-1.0) mg/dL AST 52 H (5-31) U/L ALT 43 H (0-31) U/L Alkaline Phosphatase 39 (39-117) U/L Total Protein 7.5 (6.5-8.0) g/dL Albumin 4.7 (3.5-5.0) g/dL Lipase 26 (8-78) U/L Beta HCG, Quant < 2 mIU/mL Influenza Type A (PCR) POSITIVE A (Negative) Influenza Type B (PCR) NEGATIVE (Negative) RSV RNA Qual (PCR) NEGATIVE (Negative) SARS-CoV-2 RNA (RT-PCR) NEGATIVE (Negative) Independent Interpretation I performed an independent interpretation of an: Plain X-Ray Interpretation: Chest x-ray without infiltrate or consolidation Radiology Impression Discussion of test interpretation with radiology: I have reviewed the radiologist's reading. Radiologist Impression: Procedure(s): XR chest 2V Accession Number(s): [id number] cc: Physician,Unknown ; Madiha Scott~ Reason for Exam: cough EXAMINATION: XR CHEST 2 VIEWS HISTORY: cough COMPARISON: There are no prior studies available for comparison. FINDINGS: PA and lateral views of the chest are submitted. The lungs are expanded and clear. There is no pleural effusion, pneumothorax, or pulmonary vascular congestion. The heart is normal in size. The bones are intact. XR/XR chest 2V IMPRESSION: Normal examination of the chest. Electronically signed by: Guillermo Diane MD 08/05/2025 01:[address] [facility] Independent Historian Clinical information obtained from an independent historian. History obtained from or confirmed by: Friend External Record Review External record reviewed: Inpatient record Prescription Management I considered prescription management with: Other (Zofran, Tessalon) Chronic Conditions Patient?s care impacted by: Other (asthma) Social Determinants Patient?s care significantly limited by Social Determinants of Health including: Other Social Determinant of Health Critical Care Time Critical Care Time Critical Care Time: No Discharge Plan Discharge Clinical Impression: Influenza A Patient Disposition: Home, Self-Care Instructions: Influenza (ED) Additional Instructions: You tested negative for influenza A. You tested negative for COVID and RSV. Your blood work is reassuring. Your chest x-ray is reassuring and does not show any evidence of pneumonia. Influenza is a virus and does not warrant treatment with antibiotics. Treatment for influenza is supportive. Make sure you are staying adequately hydrated and getting lots of rest. I am sending ye swanson to your pharmacy for you to take as needed for cough. Giovanna has been sent to your pharmacy for you to take as needed for nausea and vomiting. Alter ibuprofen and Tylenol for fevers and body aches. Follow up with your primary care provider. If symptoms persist or worsen please return to the emergency department. The case of an emergency call 911. Prescriptions: New benzonatate 100 mg capsule 100 mg PO BID PRN (Reason: cough) Qty: 20 0RF ondansetron 4 mg tablet,disintegrating 4 mg PO Q8H PRN (Reason: nausea and vomiting) Qty: 10 0RF No Action hydroxyzine HCl 10 mg tablet 1 tab PO Q8H PRN (Reason: anxiety) Xulane 150-35 mcg/24 hr patch weekly 1 patch topical QWEEK ondansetron 4 mg tablet,disintegrating 1 tab PO Q8H PRN (Reason: nausea) amitriptyline 10 mg tablet 2 tab PO BEDTIME ferrous sulfate [FeroSul] 325 mg (65 mg iron) tablet 1 tab PO DAILY omeprazole 20 mg capsule,delayed release(DR/EC) 1 cap PO BID@0630,1630 albuterol sulfate [ProAir HFA] 90 mcg/actuation HFA aerosol inhaler 2 puff inhalation Q6H PRN (Reason: wheezing) baclofen 5 mg tablet 1 tab PO TID PRN (Reason: abdominal pain) Referrals: Physician,Unknown J [Primary Care Provider, Medical] Stand Alone Forms: Work/School Release Interventions: ED Discharge Assessment Last Done: 08/05/25 14:50 Discharge Date/Time: 08/05/25 14:56 Print Language: Serbian
[2025-08-05 13:10] LABS: MANUAL DIFF FLAG NO
[2025-08-05 13:13] LABS: Hematocrit 37.8 % (37.0-47.0); Hemoglobin 12.3 g/dl (12.0-16.0); Imm Gran Abs Auto 0.01 X10*3/uL (0.00-0.03); Imm Gran Pct Auto 0.1 % (0.0-0.4); Lymphocytes Absolute Auto 1.7 X10*3/uL (1.2-4.9); Mean Corpuscular HGB Conc 32.5 g/dl (31.0-35.0); Mean Corpuscular Hemoglobin 24.3 pg (27.0-33.0); Mean Corpuscular Volume 74.7 fL (80.0-98.0); NRBC Abs Auto 0.000 X10*3/uL (0.0-0.012); NRBC Pct Auto 0.0 /100WBC (0.0-0.2); Platelet Count 287 X10*3/uL (160-400); Red Blood Count 5.06 X10*6/uL (4.20-5.50); White Blood Count 8.0 X10*3/uL (4.8-10.8)
[2025-08-05 13:31] LABS: Alanine Aminotransferase 43 U/L (0-31); Albumin Level 4.7 g/dL (3.5-5.0); Alkaline Phosphatase 39 U/L (39-117); Anion Gap 16 (12-20); Aspartate Amino Transferase 52 U/L (5-31); Blood Urea Nitrogen 13 mg/dL (9-16); Calcium 9.0 mg/dL (8.4-10.2); Carbon Dioxide 23 mmol/L (22-29); Chloride 106 mmol/L (96-108); Creatinine Clr Calc Pharmacy 84.6; Estimated Glomerular Filt Rate > 60; Lipase 26 U/L (8-78); Magnesium 2.3 mg/dL (1.6-2.6); Potassium 3.6 mmol/L (3.3-5.1); Sodium 141 mmol/L (135-145); Total Protein 7.5 g/dL (6.5-8.0)
[2025-08-05] MEDS: Albuterol Sulfate 5 MG, Albuterol/Iprat 2.5/0.5MG 3 ML 3 ML INHALE (13:50)
[2025-08-05 13:52] VITALS: PULSE 110; RESP 22; O2SAT 96
[2025-08-05 13:56] LABS: Resp Syncy Virus RNA Qual PCR NEGATIVE (Negative); SARS COV2 PCR INHOUSE NEGATIVE (Negative)
[2025-08-05 14:16] VITALS: BP 106/62; PULSE 102; RESP 16; TEMP 36.9; O2SAT 95
[2025-08-05 14:50] VITALS: BP 106/62; PULSE 102; RESP 16; TEMP 36.9; O2SAT 95
== END 2025-08-05 14:56 | disposition home or self-care (01) ==
PROVIDERS: Physician Assistant Medical; Emergency Provider Emergency Medicine
DX: J10.1 Influenza due to other identified influenza virus with other respiratory manifestations (principal); R05.9 Cough, unspecified; Z03.818 Encounter for observation for suspected exposure to other biological agents ruled out; Z79.899 Other long term (current) drug therapy
CPT/HCPCS: 71046; 80053; 83690; 83735; 84702; 85025; 87637; 94640; 96361; 96374; 99284; J2405

== ENCOUNTER → 2025-08-05 12:41 | Outpatient (BNV) | payer OTHER, SELFPAY | PROVIDERS: Emergency Provider Emergency Medicine; Visit Provider Radiology Diagnostic Radiology | DX: R05.9 Cough, unspecified (principal) | CPT/HCPCS: 71046 ==